=== PATIENT | female | born 1930 | race Caucasian/White ===

== ENCOUNTER 2016-10-29 21:08 | Emergency (ER) | payer MEDICARE, OTHER ==
[~2016-10-29] VITALS: Ht 167.6 cm; Wt 75.4 kg
[~2016-10-29 21:08] MED LIST: ESTR0.07 TD; LORTA5 PO; OMEP20TA PO; PERI8.6T PO; PRAV20 PO; RIVA20 PO; SERT-132 PO; VITA100018 PO
[2016-10-29 21:12] VITALS: BP 168/89; PULSE 137; RESP 16; TEMP 97.3; O2SAT 96
[2016-10-29 21:22] VITALS: BP 147/96; PULSE 138; RESP 20; O2SAT 98
[2016-10-29] MEDS ORDERED: SODIUM CHLORIDE 0.9% FLUSH 10 ML FLUSH IVF PRN (21:30)
[2016-10-29 21:38] LABS: AUTOMATED NEUTROPHIL # 4.4 TH/MM3 (1.8-7.7); BASOPHIL # 0.1 TH/MM3 (0-0.2); BASOPHIL % 0.8 % (0.0-2.0); EOSINOPHIL # 0.2 TH/MM3 (0-0.4); EOSINOPHIL % 2.3 % (0.0-4.0); HEMATOCRIT 34.9 % (35.0-46.0); HEMO FLAGS DIFF FINAL; LYMPH % 34.4 % (9.0-44.0); LYMPHOCYTE # 2.7 TH/MM3 (1.0-4.8); MEAN CORPUSCULAR HEMOGLOBIN 30.5 PG (27.0-34.0); MEAN CORPUSCULAR HGB CONC 33.5 % (32.0-36.0); MONO % 5.3 % (0.0-8.0); NEUT % 57.2 % (16.0-70.0); PLATELET COUNT 270 TH/MM3 (150-450); RED BLOOD COUNT 3.83 MIL/MM3 (4.00-5.30); RED CELL DISTRIBUTION WIDTH 12.9 % (11.6-17.2); WHITE BLOOD COUNT 7.8 TH/MM3 (4.0-11.0)
--- NOTE | 2016-10-29 21:46 | PD ---
HPI Chief Complaint: Cardiac Complaint Time Seen by Provider: 21:20 Travel History International Travel<30 days: No Contact w/Intl Traveler<30days: No Traveled to known affect area: No History of Present Illness HPI Patient is an 85-year-old female with a history of paroxysmal atrial fibrillation fibrillation presents emergency Department with generalized weakness and palpitations which started earlier tonight. Patient states she's had runs of atrial fibrillation like this before but not lasting this long. She 's been taking her medications including Xarelto. She denies any focalized weakness. She does endorse some mild right-sided headache which she states been there for some time and she has an appointment for an MRI in 4 days from now. Denies any chest pain shortness of breath abdominal pain nausea vomiting diarrhea. PFSH Past Medical History Hx Anticoagulant Therapy: Yes Arthritis: Yes Atrial Fibrillation: Yes Anxiety: Yes Depression: Yes Heart Rhythm Problems: Yes (AFIB) Cancer: No Cardiovascular Problems: Yes (AFIB) High Cholesterol: Yes Chemotherapy: No Chest Pain: No Congestive Heart Failure: No Cerebrovascular Accident: Yes Diminished Hearing: No Endocrine: No Gastrointestinal Disorders: Yes GERD: Yes Genitourinary: No Hiatal Hernia: No Immune Disorder: No Kidney Stones: No Musculoskeletal: Yes (LEFT KNEE ARTHOSCOPY,LEFT SHOLDER REPAIR AFTER TORN ROTATOR CUFF) Neurologic: Yes Psychiatric: Yes Reproductive: No Respiratory: No Immunizations Current: Yes Migraines: No Radiation Therapy: No Renal Failure: No Seizures: No Sickle Cell Disease: No Ulcer: No ?: Not Menopausal: Yes Past Surgical History Abdominal Surgery: No AICD: No Arteriovenous Shunt: No Cardiac Surgery: No Ear Surgery: No Endocrine Surgery: No Eye Surgery: No Genitourinary Surgery: No Gynecologic Surgery: Yes (HISTORECTOMY) Hysterectomy: Yes Insulin Pump: No Joint Replacement: No Oral Surgery: No Pacemaker: No Thoracic Surgery: No Tonsillectomy: Yes Other Surgery: Yes (BENIGN HEAD TUMOR) Social History Alcohol Use: Yes (SOCIALLY) Tobacco Use: No (NEVER) Substance Use: No Allergies-Medications (Allergen,Severity, Reaction): Coded Allergies: Amoxicillin (Unverified Allergy, Severe, Rash, 10/29/16) Penicillin (Verified Adverse Reaction, Intermediate, BURNING IN STOMACH, ) REPORTS NO ADVERSE REACTION TO SAID NURSE Reported Meds & Prescriptions Reported Meds & Active Scripts Active Reported Vitamin B Complex (B-Complex Vitamins) 1 Tab 1 Tab PO DAILY Magnesium (Magnesium Oxide) 400 Mg Tablet 400 Mg PO DAILY Vitamin D (Cholecalciferol) 2,000 Unit Cap 1,000 Mg PO DAILY Hydrocodone-Acetaminophen 5-300 Mg Tab 1 Tab PO Q4H PRN Omeprazole 20 Mg Tab 20 Mg PO DAILY Xarelto (Rivaroxaban) 20 Mg Tab 20 Mg PO DAILY Citalopram (Citalopram Hydrobromide) 20 Mg Tab 20 Mg PO DAILY Review of Systems Except as stated in HPI: all other systems reviewed are Neg Physical Exam Narrative GENERAL: Well-developed well-nourished appears mildly uncomfortable. Appears younger than stated age. SKIN: Focused skin assessment warm/dry. HEAD: Atraumatic. Normocephalic. EYES: Pupils equal and round. No scleral icterus. No injection or drainage. ENT: No nasal bleeding or discharge. Mucous membranes pink and moist. NECK: Trachea midline. No JVD. CARDIOVASCULAR: Irregularly irregular with intermittent tachycardia.. No murmur appreciated. 2+ bilateral equal pulses in all 4 extremity's. No murmurs gallops or rubs. RESPIRATORY: No accessory muscle use. Clear to auscultation. Breath sounds equal bilaterally. GASTROINTESTINAL: Abdomen soft, non-tender, nondistended. Hepatic and splenic margins not palpable. MUSCULOSKELETAL: No obvious deformities. No clubbing. No cyanosis. No edema. NEUROLOGICAL: Awake and alert. No obvious cranial nerve deficits. Motor grossly within normal limits. Normal speech. PSYCHIATRIC: Appropriate mood and affect; insight and judgment normal. Data Data Last Documented VS Vital Signs Date Time Temp Pulse Resp B/P Pulse Ox O2 Delivery O2 Flow Rate FiO2 10/29/16 23:24 78 20 129/71 98 10/29/16 21:40 Room Air 10/29/16 21:12 97.3 Orders Electrocardiogram (10/29/16 21:30) Ckmb (Isoenzyme) Profile (10/29/16 21:30) Complete Blood Count With Diff (10/29/16 21:30) Comprehensive Metabolic Panel (10/29/16 21:30) Magnesium (Mg) (10/29/16 21:30) Prothrombin Time / Inr (Pt) (10/29/16 21:30) Act Partial Throm Time (Ptt) (10/29/16 21:30) Troponin I (10/29/16 21:30) Chest, Single Ap (10/29/16 21:30) Ecg Monitoring (10/29/16 21:30) Iv Access Insert/Monitor (10/29/16 21:30) Oximetry (10/29/16 21:30) Oxygen Administration (10/29/16 21:30) Sodium Chloride 0.9% Flush (Ns Flush) (10/29/16 21:30) Labs Laboratory Tests Test 10/29/16 21:35 White Blood Count 7.8 TH/MM3 Red Blood Count 3.83 MIL/MM3 Hemoglobin 11.7 GM/DL Hematocrit 34.9 % Mean Corpuscular Volume 91.0 FL Mean Corpuscular Hemoglobin 30.5 PG Mean Corpuscular Hemoglobin 33.5 % Concent Red Cell Distribution Width 12.9 % Platelet Count 270 TH/MM3 Mean Platelet Volume 8.3 FL Neutrophils (%) (Auto) 57.2 % Lymphocytes (%) (Auto) 34.4 % Monocytes (%) (Auto) 5.3 % Eosinophils (%) (Auto) 2.3 % Basophils (%) (Auto) 0.8 % Neutrophils # (Auto) 4.4 TH/MM3 Lymphocytes # (Auto) 2.7 TH/MM3 Monocytes # (Auto) 0.4 TH/MM3 Eosinophils # (Auto) 0.2 TH/MM3 Basophils # (Auto) 0.1 TH/MM3 CBC Comment DIFF FINAL Differential Comment Prothrombin Time 14.4 SEC Prothromb Time International 1.3 RATIO Ratio Activated Partial 40.8 SEC Thromboplast Time Sodium Level 140 MEQ/L Potassium Level 3.5 MEQ/L Chloride Level 106 MEQ/L Carbon Dioxide Level 28.3 MEQ/L Anion Gap 6 MEQ/L Blood Urea Nitrogen 22 MG/DL Creatinine 1.00 MG/DL Estimat Glomerular Filtration 53 ML/MIN Rate Random Glucose 89 MG/DL Calcium Level 9.0 MG/DL Magnesium Level 1.7 MG/DL Total Bilirubin 0.2 MG/DL Aspartate Amino Transf 29 U/L (AST/SGOT) Alanine Aminotransferase 34 U/L (ALT/SGPT) Alkaline Phosphatase 89 U/L Total Creatine Kinase 91 U/L Troponin I LESS THAN 0.02 NG/ML Total Protein 7.2 GM/DL Albumin 3.6 GM/DL MDM Medical Decision Making Medical Screen Exam Complete: Yes Emergency Medical Condition: Yes Interpretation(s) Initial EKG at 2123 shows atrial fibrillation a rate of 97. Left axis deviation normal R-wave progression. no concerning ST segment changes. This an abnormal rhythm EKG. Cardiac monitoring shows age fibrillation with a rate between 90 and 150. TAKING initial history her heart rate dropped to 50s to 60s.. To be more regular. EKG was repeated: Repeat EKG at 2130 shows sinus bradycardia rate of 51, there is sinus arrhythmia. Intervals within normal limits. No concerning ST segment changes. Left axis deviation. This a borderline EKG. Differential Diagnosis Atrial fibrillation with RVR, ACS unlikely, electro-light abnormality, AMI unlikely. Narrative Course Patient was roomed emergency department, while taking her initial history she spontaneously converted into a sinus rhythm. She was observed for several hours in the emergency department and then walked around the emergency department after her labs returned and were unremarkable. She was monitored again and had no return of atrial fibrillation. She feels much better after her rhythm is spontaneously converted and wishes to go home. After discussion with her and her daughter they were concerned that they didn't want her to go to sleep feeling with these palpitations. I discussed if she should awake with palpitations her that should recur or any other symptoms recur she is more than welcome to return to emergency department anytime for reevaluation. She is stable for discharge. Diagnosis Primary Impression: Atrial fibrillation with RVR Additional Instructions: Follow up with your primary care physician by phone in the morning. Disposition: 01 DISCHARGE HOME Condition: Stable Nino Peña MD Oct 29, 2016 21:46
[2016-10-29 21:47] LABS: CHLORIDE 106 MEQ/L (98-107); POTASSIUM 3.5 MEQ/L (3.5-5.1); SODIUM (NA) 140 MEQ/L (136-145)
[2016-10-29 21:50] LABS: ANION GAP 6 MEQ/L (5-15); BICARBONATE 28.3 MEQ/L (21.0-32.0)
[2016-10-29 21:51] LABS: BLOOD UREA NITROGEN 22 MG/DL (7-18); MAGNESIUM 1.7 MG/DL (1.5-2.5)
[2016-10-29 21:52] LABS: APTT (PATIENT) 40.8 SEC (24.3-30.1); INTERNATIONAL NORMALIZED RATIO 1.3 RATIO; PROTHROMBIN TIME - PATIENT 14.4 SEC (9.8-11.6)
[2016-10-29 21:54] LABS: ALT (GPT) 34 U/L (10-53); AST (GOT) 29 U/L (15-37); GLOMERULAR FILTRATION RATE 53 ML/MIN (>89)
[2016-10-29 21:55] LABS: TOTAL BILIRUBIN ADULT 0.2 MG/DL (0.2-1.0)
[2016-10-29 21:56] VITALS: BP 108/56; PULSE 52; RESP 20; O2SAT 98
[2016-10-29 21:56] LABS: ALKALINE PHOSPHATASE 89 U/L (45-117)
[2016-10-29] MEDS ORDERED: CITA20TA4 PO (21:58)
[2016-10-29] MEDS ORDERED: OMEP20TA PO (21:58)
[2016-10-29] MEDS ORDERED: MAGN400T24 PO (21:58)
[2016-10-29] MEDS ORDERED: VITA200013 PO (21:58)
[2016-10-29] MEDS ORDERED: XARE20TA PO (21:58)
[2016-10-29] MEDS ORDERED: HYDR-4107 PO (21:58)
[2016-10-29] MEDS ORDERED: VITATAB11 PO (21:58)
--- NOTE | 2016-10-29 22:02 | RADRPT ---
EXAM DATE/TIME: 10/29/2016 21:40 [facility] COMPARISON: CHEST SINGLE AP, June 08, 2015, 15:01. INDICATIONS : Jaw discomfort, patient in AFIB. MEDICAL HISTORY : None. SURGICAL HISTORY : Hysterectomy. ENCOUNTER: Initial ACUITY: 1 day PAIN SCORE: 6/10 LOCATION: Bilateral upper chest FINDINGS: A single view of the chest demonstrates the lungs to be symmetrically aerated without evidence of mas s, infiltrate or effusion. The cardiomediastinal contours are unremarkable. Osseous structures are intact. CONCLUSION: The lungs are clear. Damir Chon MD on October 29, 2016 at 22:00 Board Certified Radiologist. This report was verified electronically.
[2016-10-29 22:06] LABS: CREATINE KINASE 91 U/L (26-192)
[2016-10-29 23:24] VITALS: BP 129/71
--- NOTE | 2016-10-30 11:12 | EKG ---
Date Performed: 10/29/2016 Time Performed: 21:31:19 PTAGE: 85 years EKG: SINUS BRADYCARDIA WITH SINUS ARRHYTHMIA LOW QRS VOLTAGE IN PRECORDIAL LEADS BORDERLINE ECG Since PREVIOUS TRACING , no significant change noted PREVIOUS TRACING 10/05/2015 19.40.24 DOCTOR: Leandro Dos Santos Interpretating Date/Time 10/30/2016 11:11:32
== END 2016-10-29 23:29 | disposition home or self-care (01) ==
LOC: PHED 21:08
DX: I48.0 Paroxysmal atrial fibrillation (principal); Z79.01 Long term (current) use of anticoagulants
CPT/HCPCS: 71010; 80053; 82550; 83735; 84484; 85025; 85610; 85730; 93005

== ENCOUNTER 2017-01-04 05:57 | Day surgery (SDC) | payer OTHER ==
[~2017-01-04] VITALS: Ht 167.6 cm; Wt 73.5 kg
[2017-01-04] VITALS (8 sets, daily range): BP systolic 104–154; BP diastolic 68–77; PULSE 56–85; RESP 16–17; TEMP 97.6–97.9; O2SAT 97–99
[~2017-01-04 05:57] MED LIST changes: +CITA20TA4 PO; -ESTR0.07 TD; +HYDR-4107 PO; -LORTA5 PO; +MAGN400T24 PO; -PERI8.6T PO; -PRAV20 PO; -RIVA20 PO; -SERT-132 PO; -VITA100018 PO; +VITA200013 PO; +VITATAB11 PO; +XARE20TA PO
[2017-01-04] MEDS ORDERED: LORazepam 1 MG TAB SL SCH (06:45)
[2017-01-04] MEDS ORDERED: POVIDONE IODINE 5% (ANTISEPSIS KIT) 4 APPLICATIONS EACH NARE PRN (06:45)
[2017-01-04] MEDS ORDERED: SODIUM CHLORID 0.9% 500 ML IV PRN (06:45)
[2017-01-04] MEDS ORDERED: CHLORHEXIDINE GLUCONATE 2 % 1 PACK (2 CLOTHS) TOPICAL PRN (06:45)
[2017-01-04] MEDS ORDERED: METOPROLOL TARTRATE 25 MG TAB PO PRN (06:45)
[2017-01-04] MEDS ORDERED: INSULIN HUMAN REGULAR 1,000 UNITS/10 ML VIAL SQ PRN (06:45)
[2017-01-04] MEDS ORDERED: LACTATED RINGER'S 1000 ML IV PRN (06:45)
[2017-01-04] MEDS ORDERED: LEVOFLOXACIN 500 MG PREMIX INJ 100 ML IV SCH (06:45)
[2017-01-04] MEDS: SODIUM CHLORID 0.9% 500 ML INJ 500 ML IV SCH ×2 (06:45→23:25)
[2017-01-04 07:03] LABS: AUTOMATED NEUTROPHIL # 2.9 TH/MM3 (1.8-7.7); EOSINOPHIL # 0.2 TH/MM3 (0-0.4); HEMATOCRIT 34.7 % (35.0-46.0); HEMO FLAGS DIFF FINAL; LYMPH % 25.7 % (9.0-44.0); LYMPHOCYTE # 1.2 TH/MM3 (1.0-4.8); MEAN CELL VOLUME 93.5 FL (80.0-100.0); MEAN CORPUSCULAR HEMOGLOBIN 30.9 PG (27.0-34.0); MEAN CORPUSCULAR HGB CONC 33.1 % (32.0-36.0); MONO % 7.2 % (0.0-8.0); NEUT % 61.1 % (16.0-70.0); PLATELET COUNT 235 TH/MM3 (150-450); RED BLOOD COUNT 3.71 MIL/MM3 (4.00-5.30); RED CELL DISTRIBUTION WIDTH 13.9 % (11.6-17.2); WHITE BLOOD COUNT 4.8 TH/MM3 (4.0-11.0)
[2017-01-04 07:07] LABS: APTT (PATIENT) 34.3 SEC (24.3-30.1); PROTHROMBIN TIME - PATIENT 10.5 SEC (9.8-11.6)
[2017-01-04 07:45] LABS: BICARBONATE 27.4 MEQ/L (21.0-32.0); POTASSIUM 3.9 MEQ/L (3.5-5.1)
[2017-01-04] MEDS ORDERED: HEPARIN-NS/PF INJ 2,000 ML ONE (08:07)
[2017-01-04] MEDS ORDERED: HEPARIN-D5W 25,000 U/250 ML 250 ML ONE (08:17)
[2017-01-04] MEDS ORDERED: ISOPROTERENOL HCL 1 MG/5 ML AMP ONE (08:17)
[2017-01-04] MEDS ORDERED: HEPARIN SODIUM - IV 10,000 UNITS/10 ML VIAL ONE (08:18)
[2017-01-04] MEDS ORDERED: PROTAMINE SULFATE 50 MG/5 ML VIAL ONE (10:29)
--- NOTE | 2017-01-04 10:38 | PD.CARD ---
Atrial Fibrillation Cryo Study PROCEDURE DATE: Jan 04, 2017 PROCEDURE PERFORMED Electrophysiology study, CS cannulation, 3-D mapping, transeptal approach, right and left heart catheterization, cryoablation and RF ablation of atrial fibrillation, pulmonary vein isolation, posterior ablation, anterior ablation, repeat electrophysiology study on Isuprel infusion, intracardiac echo. Very complex case. INDICATIONS FOR PROCEDURE Ms. Bowser is a 86-year-old female with hx of atrial fibrillation, on multiple medications, on anticoagulation, referred for electrophysiology study and ablation. The risks, the nature and the benefit of the procedure are clearly stated to her. The risks include pneumothorax, cardiac perforation, stroke, need for open heart surgery and even . The patient understood and agreed to proceed. PROCEDURE As written informed consent was obtained prior to esophageal echo, the patient was kept on the table where she was prepped and draped in the usual sterile fashion. Conscious sedation was initiated and throughout the procedure by the anesthesiologist. Once sedation was verified, the right and left inguinal area was anesthetized with 2% Xylocaine. Using modified Seldinger technique, the left femoral vein was cannulated on three occasions and three guidewires were advanced over the wire, one 6, one 7, and one 10-Cypriot Hemaquet were advanced. Then the left femoral artery was done on one occasion, one guidewire was advanced over the wire. A 4-Cypriot Hemaquet was advanced. Then the right femoral vein was cannulated on one occasion and one guidewire was advanced over the wire. An 8-Cypriot Hemaquet was advanced. Then under fluoroscopic guidance through the 6 and 7-Cypriot Hemaquet, two 5- Cypriot Sunshine curved quadripolar electrophysiology catheters were advanced and positioned on the His as well as coronary sinus. The patient was in sinus rhythm. Basic interval was measured. They were all within normal limits. Then through the 10-Cypriot Hemaquet, a Cordis-Londono AcuNav intracardiac echo catheter was advanced and placed at the right atrium. Multiple views were obtained. There was no pericardial effusion. Pulmonary vein was seen. The atrial septum was visualized. Then the 8-Cypriot Hemaquet in the right femoral vein was exchanged for an Agilis transseptal sheath that was placed all the way to the superior vena cava. Through this sheath a Dixon needle was advanced. Then the sheath, the dilator and the needle were pulled back progressively until foci engaged. Once the needle was advanced, RF was delivered for 2 seconds. I was able to cross into the left atrium. Once the needle was crossed, the dilator was advanced. Once the dilator was crossed, the sheath was advanced. Once the sheath crossed , the dilator and needle were removed. An intracardiac echo showed the sheath in good position. The patient already received 10,000 units of heparin. The goal is to get an ACT around 360 during the ablation. Through the sheath a 0.035 wire was advanced. I did exchange the Agilis sheath for a Tetra Discovery flex sheath. I decided to use a 28mm balloon. The balloon was advanced over the Acheive circumferential catheter. Using Ensite , a 3 D mapping of the left atrium was performed. First I did engage the left superior vein. The balloon was inflated, complete occlusion obtained. CryoEnergy was delivered for 3 and 3 minutes. Temperature reached -48. Then I did engage the left inferior vein, occlusion obtained. Venography showed complete occlusion and CryoEnergy was delivered for 3 and 3 minutes. Temperature was around -44 to -46. Then the right inferior was engaged, complete occlusion obtained. Temperature reach -56 for 3 minutes. Then the right superior was engaged. Before CryoEnergy of the right veins, the His catheter was placed at the left and the right subclavian. Phrenic nerve pacing was performed. There was diaphragmatic stimulation. That is going to be used for phrenic nerve monitoring during cryoablation. I did cryoablate the right superior vein. There was no loss of phrenic nerve movement, diaphragmatic movement. Phrenic nerve was intact. The temperature dropped to -56 for 3 minutes. At that point I removed the balloon. The circumferential catheter was advanced into the veins. Pacing from the vein showed no conduction to the atrium. Pacing from the atrium showed no conduction to the veins. The patient at this point received Isuprel infusion for around 10 minutes at 20mcg. No tachyarrhythmia was induced, no conduction resumed. Post-Isuprel no conduction resumed either. At that point the procedure was complete. All catheters were removed, the transeptal sheath was exchanged for a 12-Cypriot Hemaquet. Intracardiac echo showed pericardial effusion, still good flow in the pulmonary vein. No incident reported. The patient tolerated the procedure. Blood loss minimal. 1. Electrocardiogram: At baseline the patient was in sinus. Postprocedure the patient in sinus. 2. Basic Interval: Base cycle length was around 1100 milliseconds. 3. Tachyarrhythmia: Atrial fibrillation was mapped and ablated. Ablation was successful. CONCLUSION Successful electrophysiology study, mapping and cryo ablation of atrial fibrillation, pulmonary vein isolation, posterior and anterior wall ablation, repeat electrophysiology study on Isuprel infusion. COMMENT AND RECOMMENDATIONS The patient is going to be transferred to the telemetry unit, will be observed, and when stable can be discharged home. Baylee Mccarthy MD Jan 04, 2017 10:38
[2017-01-04] MEDS ORDERED: BACITRACIN OINT 0.9 GM PKT TOP ONE (10:45)
[2017-01-04] MEDS ORDERED: ATROPINE SULFATE 1 MG/ML VIAL IV PUSH PRN (10:45)
[2017-01-04] MEDS ORDERED: LORazepam 2 MG/ML VIAL IV PUSH PRN (10:45)
[2017-01-04] MEDS ORDERED: LIDOCAINE HCL 1% 50 ML VIAL INFIL PRN (10:45)
[2017-01-04] MEDS ORDERED: SODIUM CHLOR 0.9% 250 ML INJ 250 ML IV PRN (10:45)
[2017-01-04] MEDS ORDERED: ONDANSETRON HCL 4 MG/2 ML VIAL IV PUSH PRN (10:45)
[2017-01-04] MEDS ORDERED: oxyCODONE/ACETAMINOPHEN 5 MG/325 MG TAB PO PRN ×2 (10:45)
[2017-01-04] MEDS ORDERED: METOCLOPRAMIDE HCL 10 MG/2 ML VIAL IV PUSH PRN (10:45)
--- NOTE | 2017-01-04 11:22 | CATHPROC ---
[employer] HIS Report Study Information Study Number Admission Scheduled Start Study Start [id number] Jan 04 2017 5:57AM 01/04/2017 Jan 04 2017 7:08AM [place] Service Electrophysiology Study Admit Source Facility Department Other [facility] - [facility] Physician and Clinical Staff Initial Baylee Bernardo Senior Quality Methods Specialist James Arce,RT(R) Other Anesthesia, WOOD CABINETMAKER Recorder Jana Keita,JOSEPH Scrub Ruth Patel RCIS Procedures Performed Procedure Location (Site) Vessel Name Ablation Procedure CRYO Ablation LIPV LIPV CRYO Ablation LSPV LSPV CRYO Ablation RIPV RIPV CRYO Ablation RSPV RSPV ICE CATHETER INSERT RA Atruim Venogram LSPV LSPV Venogram RSPV RSPV Wire insertion Fem Vein (right) Femoral Vein Equipment Time Vehicle Painter Description Size Mfg Part Number Used/Scraped COPILOT VALVE, BLEEDBACK [id number] 09:00 [employer] Used CONTROL *[id number] TRANSDUCER, TRUWAVE [id number] 09:00 [employer]self * Used W/STOCKCOCK *[id number] NEEDLE, TRANSSEPTAL NRG 98 09:00 [facility] [place] [id number] Used C1 COVER, TRANSDUCER CABLE 09:00 [employer] [id number] Used ACUNAV 09:00 CONMED LEADWIRE, DEFIBRILLATION PAD 2001M-[id number] Used SHEATH SET, FR12 CHECK-JULIANN RCF-[id number]-J 09:00 COOK/PACER FR12 Used 13CM *[id number] 09:00 CORDIS/PACER SHEATH, FR10 ZA 11CM FR 10 [id number] Used [id number] 09:00 [employer] PACK, CCL CUSTOM * Used *[id number] 09:00 Folde[employer] PACER RIVERA, LIMB * 2530 *[id number] Used [id number] 09:00 [employer] MEDICAL SHEATH, FR4.5 PRELUDE 11CM FR 4.5 Used [id number] 09:00 [employer] MEDICAL WIRE, 3MMJ .035 180CM 180CM Used *[id number] 09:00 NAMIC MANIFOLD, 4 PORT * Used *[id number] 09:00 NAMIC TUBING, HIGH PRESSURE 20" 20" Used *[id number] 09:00 NAMIC TUBING, HIGH PRESSURE 48" 48" Used *[id number] 09:00 NAMIC TUBING, HIGH PRESSURE 48" 48" Used *[id number] TUBING, PRESSURE MONITORING [id number] 09:00 NAMIC PACER 72" Used 72" *1999161 09:35 [employer]COMED OMNIPAQUE, 300 MG, 150ML 150ML [id number] Used [id number] 09:00 TIJERINA MEDICAL BLANKET,WARM AIR CCL * Used *[id number] 055109 09:00 [employer] MEDICAL CATHETER, JSN, QUAD FR 5 Used *[id number] 09:00 [employer] MEDICAL CATHETER, JSN, QUAD FR 5 Used *[id number] 09:00 [employer] MEDICAL ELECTRODE KIT, LINDSAY X SURFACE * [id number] Used [id number] 09:00 [employer] MEDICAL SHEATH, EPS, FR6 FAST CATH FR 6 Used *[id number] 09:00 [employer] MEDICAL SHEATH, EPS, FR7 FAST CATH FR 7 [id number] Used [id number] 09:00 [employer] MEDICAL SHEATH, EPS, FR8 FAST CATH FR 8 Used *[id number] CATHETER, ACUNAV FR10 ICE [id number] 09:11 JOSÉ MIGUEL FR 10 Used (JOSÉ MIGUEL) *[id number] [facility] PAD, ELECTROSURGICAL 09:00 * [id number] *[id number] Used SURGICAL GROUNDING (BLUE) BALLOON, ARCTIC FRONT [id number] 09:18 VITATRON [employer] Used ADVANCE 28MM *[id number] CATHETER, ACHEIVE MAPPING [id number] 09:14 VIT[employer]RON [employer] 20MM Used 20MM *[id number] SHEATH, FR12 FLEXCATH 09:18 VITATRON [employer]TR[employer] FR 12 [id number] Used STEERABLE History: Allergies Allergy Reaction amoxicillin Rash Penicillin BURNING IN STOMACH penicillin G BURNING IN STOMACH History: Risk Factors Dyslipidemia Yes Cerebrovascular Disease Labs Hgb (g/dl) Hct (%) RBC (MIL/MM3) WBC (l/cumm) Platelets (thousands) 11.60-17.00 35.00-51.00 4.00-5.90 4.00-11.00 150.00-450.00 11.0 34 3.8 7.8 270 Glucose (mg/dl) BUN (mg/dl) Creatinine (mg/dl) BUN:Creatinine (1:x) 74.00-106.00 7.00-18.00 0.50-1.30 10.00-20.00 89 22 1.0 22 Na (meq/l) K (meq/l) 136.00-145.00 3.50-5.10 140 3.5 INR (PTT:PT) 0.90-1.10 1.3 Medication Medication Total Dose (Bolus/Oral) Medication Total Dosage/Unit 1% XYLOCAINE 40 mL HEPARIN 20683 units PROTAMINE 40 mg Medications (Bolus/Oral) Medication Time Given Dosage/Unit Administered By Reason 1% XYLOCAINE 01/04/2017 9:00:47 AM 20 mL Baylee Mccarthy 20 mL 1% XYLOCAINE given in lab by Baylee Mccarthy in Left Groin via Subcutaneous. 1% XYLOCAINE 01/04/2017 9:07:00 AM 20 mL Baylee Mccarthy 20 mL 1% XYLOCAINE given in lab by Baylee Mccarthy via Subcutaneous. HEPARIN 01/04/2017 9:13:47 AM 8000 units Anesthesia, WOOD CABINETMAKER As per physicians ve rbal order 8000 units HEPARIN given in lab by Anesthesia, WOOD CABINETMAKER via Peripheral IV. Ordered by Baylee Mccarthy. Reas on: As per physicians verbal order. HEPARIN 01/04/2017 9:30:35 AM 2000 units Anesthesia, WOOD CABINETMAKER As per physicians ve rbal order 2000 units HEPARIN given in lab by Anesthesia, WOOD CABINETMAKER via Peripheral IV. Ordered by Baylee Mccarthy. Reas on: As per physicians verbal order. HEPARIN 01/04/2017 9:45:17 AM 2000 units Anesthesia, WOOD CABINETMAKER As per physicians ve rbal order 2000 units HEPARIN given in lab by Anesthesia, WOOD CABINETMAKER via Peripheral IV. Ordered by Baylee Mccarthy. Reas on: As per physicians verbal order. PROTAMINE 01/04/2017 10:34:22 AM 40 mg Anesthesia, WOOD CABINETMAKER As per physicians mattie bal order 40 mg PROTAMINE given in lab by Anesthesia, WOOD CABINETMAKER via Peripheral IV. Ordered by Baylee Mccarthy. Reason: As per physicians verbal order. Medication (Drip) Medication Time Given Dosage/Unit Concentration/Unit Diluent (ml) Solution HEPARIN DRIP 01/04/2017 9:31:48 AM 1000 units/hr 19868 units 250 D5W 1000 units/hr HEPARIN DRIP given in lab by Anesthesia, WOOD CABINETMAKER via Peripheral IV. Pump/Drip Flow = 10 ml /hr using [place] [address] units in 250 ml. Ordered by Baylee Mccarthy. Reason: As per physicians verbal order. ISUPREL 01/04/2017 10:13:33 AM 20 mcg/min 1 mg 250 NaCl .9 20 mcg/min ISUPREL given in lab by CHUY Mora via Peripheral IV. Pump/Drip Flow = 300 ml/hr usi ng NaCl .9 with a concentration of 1 mg in 250 ml. Ordered by Baylee Mccarthy. Reason: As per physicians verbal order. Initial Case Assessment Cardiovascular HR Rhythm NIBP Chest Pain 61 sr 181/85 0 Edema Present Skin color Skin None Normal Warm Dry Circulatory - Right Pulses Dorsalis Pedis 2 Scale (0,1,2,3,4,d) Circulatory - Left Pulses Dorsalis Pedis 2 Scale (0,1,2,3,4,d) Circulatory - Lower Extremities Color Lower Right Color Lower Left Normal Normal Neurological State Oriented to time-place- Alert Moves all extremities person Respiration - General Respiration Rate SpO2 (%) (B/min) 20 92 Final Case Assessment Cardiovascular HR Rhythm NIBP Chest Pain 65 sr 150/80 0 Edema Present Skin color Skin None Normal Warm Dry Circulatory - Right Pulses Dorsalis Pedis 2 Scale (0,1,2,3,4,d) Circulatory - Left Pulses Dorsalis Pedis 2 Scale (0,1,2,3,4,d) Circulatory - Lower Extremities Color Lower Right Color Lower Left Normal Normal Neurological State Oriented to time-place- Alert Moves all extremities person Respiration - General Respiration Rate SpO2 (%) O2 (lpm) (B/min) 14 100 4 Chronological Log Time Study Chronological Log 8:04:46 Patient arrived via Bed. 8:04:47 Patient Name, D.O.B, / Armband Verified By R.N. 8:04:48 Consent signed by the physician and the patient and verified by the [facility] staff. 8:04:48 Pre-op and post- op instructions given; patient acknowledges understanding of instructions. 8:04:49 Verbal Stimulation=2 Physical Stimulation=2 Airway=2 Respiration=2 TOTAL=8. (0=absent, 1=li mited, 2=present) 8:05:01 Anesthesia at bedside. Assumes care of patient. 8:05:05 Patient has been NPO for More than 6Hrs. 8:05:06 Skin Breakdown- 8:05:07 Patient Warmer Placed on the Table. 8:05:08 Disposable Defibrillator Pads Placed On Patient. 8:05:10 Alvina Prominences Protected 8:05:11 A # 20 IV was noted in the Antecubital (right). Grade = 0 0.9ns kvo 8:05:12 A # 20 IV was noted in the Antecubital (left). Grade = 0 0.9ns kvo 8:05:13 History and physical on the chart or being dictated. Assessment: Initial Case, HR=61 BPM, Rhythm=sr, IUED=926/85 mmhg, Chest Pain=0, Edema=None, [place] r=Normal, Skin = Warm, Dry Right Pulses: Jos Ped=2 Left Pulses: Jos Ped=2 8:18:34 Lower Right Extremities: Color=Normal Lower Left Extremities: Color=Normal Neurological: State=Alert, Ox3, BANKS Respiration: Resp=20 B/min, SpO2=92 % 8:19:36 Table restraints applied according to hospital policy 8:25:25 Reference ECG taken 8:25:27 Anethesiologist present for intubation. 8:35:49 [facility] rep present. 8:41:00 MD paged 8:41:49 MD responded 8:53:41 MD arrived. Time Out. Correct patient, procedure, procedure equipment, site and side verified with physician present. Time 8:56:00 concurred by MD, individual staff and WOOD CABINETMAKER. 8:56:03 Reference ECG taken 8:56:23 Pressure channel 2 zeroed. Time Out #2 - Consents verified, patient in correct position, all results are labled and display ed, safety precautions 8:56:38 taken, antibiotics administered. Time out concurred by MD, individual staff and WOOD CABINETMAKER in procedur e 8:56:59 Case Start 8:57:34 MARLON in progress 8:59:47 MARLON complete 9:00:47 20 mL 1% XYLOCAINE given in lab by Baylee Mccarthy in Left Groin via Subcutaneous. 9:02:00 Vascular access was obtained in the Fem Vein (left). 9:02:06 Vascular access was obtained in the Fem Vein (left). 9:02:20 Vascular access was obtained in the Fem Vein (left). 9:02:27 Vascular access was obtained in the Fem Art (left). A SHEATH, FR4.5 PRELUDE 11CM FR 4.5 was advanced into the Fem Art (left) using the Modified Seld margi technique. 9:02:46 0.9ns pressure bag connected. 9:03:31 A SHEATH, EPS, FR6 FAST CATH FR 6 was advanced into the Fem Vein (left) using the Modified S eldinger technique. 9:03:43 A SHEATH, EPS, FR7 FAST CATH FR 7 was advanced into the Fem Vein (left) using the Modified S eldinger technique. 9:03:59 A SHEATH, FR10 ZA 11CM FR 10 was advanced into the Fem Vein (left) using the Modified Se briceno technique. 9:07:00 20 mL 1% XYLOCAINE given in lab by Baylee Mccarthy via Subcutaneous. 9:07:40 Vascular access was obtained in the Fem Vein (right). 9:07:56 A SHEATH, EPS, FR8 FAST CATH FR 8 was advanced into the Fem Vein (right) using the Modified Seldinger technique. A CATHETER, JSN, QUAD FR 5 was advanced vis Fem Vein (left) and placed in the CS. Placement was visually 9:09:02 confirmed under fluoroscopy. A CATHETER, JSN, QUAD FR 5 was advanced vis Fem Vein (left) and placed in the HIS. Placement was visually 9:09:30 confirmed under fluoroscopy. 9:11:11 CATHETER, ACUNAV FR10 ICE (Viragen) FR 10 Was Postioned. 8000 units HEPARIN given in lab by Anesthesia, WOOD CABINETMAKER via Peripheral IV. Ordered by Baylee Mccarthy. Reason: As per 9:13:47 physicians verbal order. 9:13:57 [place]alston in 9:14:51 A eps was advanced to the right atrium and passed through the septal wall to the left atrium . 9:14:57 Ralston out 9:21:03 Activated Clotting Time Drawn A SHEATH, FR12 FLEXCATH STEERABLE FR 12 was exchanged in the Fem Vein (right). This was necessa ry in order for 9:23:23 catheter support. A CATHETER, ACHEIVE MAPPING 20MM 20MM was advanced vis Fem Vein (right) and placed in the LA. P lacement was 9:27:00 visually confirmed under fluoroscopy. Mapping in progress. 9:27:54 ACT (Normal Range 90-180) = 313 9:29:18 A BALLOON, ARCTIC FRONT ADVANCE 28MM was inserted over wire via the Fem Vein (right). 9:30:00 Cryo Ablation of the LSPV with a BALLOON, ARCTIC FRONT ADVANCE 28MM. 9:30:00 The LSPV was manually injected with 10 cc's of contrast. OMNIPAQUE, 300 MG, 150ML 150ML used . 2000 units HEPARIN given in lab by Anesthesia, WOOD CABINETMAKER via Peripheral IV. Ordered by Baylee Mccarthy . Reason: As per 9:30:35 physicians verbal order. 1000 units/hr HEPARIN DRIP given in lab by Anesthesia, WOOD CABINETMAKER via Peripheral IV. Pump/Drip Flow = 10 ml/hr using 9:31:48 D[place] [address] units in 250 ml. Ordered by Baylee Mccarthy. Reason: As per eri cowan verbal order. 9:33:00 The LSPV was manually injected with 10 cc's of contrast. OMNIPAQUE, 300 MG, 150ML 150ML used . 9:33:44 Cryo Ablation of the LSPV with a BALLOON, ARCTIC FRONT ADVANCE 28MM. 9:37:45 Activated Clotting Time Drawn 9:42:05 Cryo Ablation of the LSPV with a balloons. 9:44:36 ACT (Normal Range 90-180) = 326 2000 units HEPARIN given in lab by Anesthesia, WOOD CABINETMAKER via Peripheral IV. Ordered by Baylee Mccarthy . Reason: As per 9:45:17 physicians verbal order. 9:48:52 Cryo Ablation of the LIPV with a BALLOON, ARCTIC FRONT ADVANCE 28MM. 9:53:38 The LSPV was manually injected with 20 cc's of contrast. OMNIPAQUE, 300 MG, 150ML 150ML used . 9:53:55 Cryo Ablation of the LIPV with a BALLOON, ARCTIC FRONT ADVANCE 28MM. 9:58:26 ACT (Normal Range 90-180) = 365 9:58:41 Cryo Ablation of the RIPV with a BALLOON, ARCTIC FRONT ADVANCE 28MM. 10:01:11 Cryo Ablation of the RIPV with a balloons. 10:03:25 The RSPV was manually injected with 10 cc's of contrast. OMNIPAQUE, 300 MG, 150ML 150ML use d. 10:03:43 Cryo Ablation of the RSPV with a BALLOON, ARCTIC FRONT ADVANCE 28MM. 10:07:13 Cryo Ablation of the RSPV with a BALLOON, ARCTIC FRONT ADVANCE 28MM. 20 mcg/min ISUPREL given in lab by Anesthesia, WOOD CABINETMAKER via Peripheral IV. Pump/Drip Flow = 300 ml/ hr using NaCl .9 10:13:33 with a concentration of 1 mg in 250 ml. Ordered by Baylee Mccarthy. Reason: As per physicians mattie bal order. 10:23:45 Isuprel off 10::45 Catheters removed without difficulty 10:28:27 A WIRE, 3MMJ .035 180CM 180CM was inserted via Fem Vein (right). A SHEATH SET, FR12 CHECK-JULIANN 13CM FR12 was exchanged in the Fem Vein (right). This was necessar y in order to 10:28:47 achieve vascular hemostasis. 10:30:43 PACU called. Spoke to Carmen. 10:31:07 Bedside Report will be given. 40 mg PROTAMINE given in lab by Anesthesia, WOOD CABINETMAKER via Peripheral IV. Ordered by Baylee Mccarthy. R vic: As per 10:34:22 physicians verbal order. 10:40:01 Activated Clotting Time Drawn 10:41:51 ACT (Normal Range 90-180) = 141 10:44:55 Right groin Sheath removed; pressure applied to access site by DB. 10:45:13 Left fem arterial Sheath removed; pressure applied to access site by DC. 10:48:27 Ablation procedure performed: AFIB. 10:48:35 EP Procedure was performed. 10:50:47 Case End 10:55:00 Left venous sheaths removed; pressure applied to access site by DC. 11:02:54 No case complications noted. 11:02:55 Cine recording checked. 11:03:28 Defibrillator and ground pads removed. Skin intact. Assessment: Final Case, HR=65 BPM, Rhythm=sr, CITU=275/80 mmhg, Chest Pain=0, Edema=None, [place] r=Normal, Skin = Warm, Dry Right Pulses: Jos Ped=2 Left Pulses: Jos Ped=2 11:20:17 Lower Right Extremities: Color=Normal Lower Left Extremities: Color=Normal Neurological: State=Alert, Ox3, BANKS Respiration: Resp=14 B/min, TvU8=158 %, O2=4 lpm 11:21:49 Sterile dressing applied to sites. Sites wnl. No hematoma. No oozing. 11:26:34 Patient moved to stretcher End Study - Contrast Media Used In Study Contrast Total Opened (mL) Total Used (mL) Total Wasted (mL) Omnipaque 150 50 100 End Study - Maximum Contrast Load Max Contrast Load (mL) 366.6 End Study - Radiation Exposure Fluoro Time (minutes) 7.0 End Study - Patient Disposition Complications Transferred To Interventional Outcome No Telemetry Bed successful
[2017-01-04] MEDS ORDERED: DO NOT ADM ANY ANTICOAGULANT DRUGS PRN (11:34)
[2017-01-04] MEDS ORDERED: DEXAMETHASONE SOD PHOS 4 MG/ML VIAL IV ONE (12:00)
[2017-01-04] MEDS ORDERED: PROPOFOL 200 MG/20 ML AMP IV ONE (12:00)
[2017-01-04] MEDS ORDERED: LIDOCAINE HCL 1% PF 5 ML AMPULE OTHER ONE (12:00)
[2017-01-04] MEDS ORDERED: ONDANSETRON HCL 4 MG/2 ML VIAL IV PUSH ONE (12:00)
[2017-01-04] MEDS ORDERED: ROCURONIUM INJ 50 MG/5 ML SYRINGE IV PUSH ONE (12:00)
--- NOTE | 2017-01-04 12:36 | EKG ---
Date Performed: 01/04/2017 Time Performed: 06:41:08 PTAGE: 86 years EKG: Sinus bradycardia with PAC(s) with borderline 1st degree A-V block. Poor R wave progression - probable normal variant Borderline ECG Compared to prior tracing no significant change PREVIOUS TRACING : 10/29/2016 21.31 DOCTOR: Leandro Dos Santos Interpretating Date/Time 01/04/2017 12:30:13
--- NOTE | 2017-01-04 15:59 | EKG ---
Date Performed: 01/04/2017 Time Performed: 12:14:08 PTAGE: 86 years EKG: Sinus rhythm WITH FIRST DEGREE AV BLOCK BORDERLINE LEFT AXIS DEVIATION POSSIBLE RIGHT VENTRICULAR CONDUCTION SANTOSH Y Compared to prior tracing no significant change ABNORMAL ECG PREVIOUS TRACING : 01/04/2017 06.41 DOCTOR: Leandro Dos Santos Interpretating Date/Time 01/04/2017 15:58:34
[2017-01-04] MEDS ORDERED: RIVAROXABAN 20 MG TAB PO SCH (18:00)
[2017-01-05] VITALS (13 sets, daily range): BP systolic 111–117; BP diastolic 46–64; PULSE 60–70; RESP 16; TEMP 97.7–97.8; O2SAT 97–98
[2017-01-05 07:01] LABS: APTT (PATIENT) 41.4 SEC (24.3-30.1); INTERNATIONAL NORMALIZED RATIO 1.3 RATIO; PROTHROMBIN TIME - PATIENT 14.2 SEC (9.8-11.6)
[2017-01-05] MEDS ORDERED: PANTOPRAZOLE SOD 20 MG DELAYED RELEASE TAB PO SCH (09:00)
[2017-01-05] MEDS ORDERED: CHOLECALCIFEROL (VIT D3) 1000 UNIT TAB PO SCH (09:00)
[2017-01-05] MEDS ORDERED: CITALOPRAM HYDROBROMIDE 20 MG TAB PO SCH (09:00)
--- NOTE | 2017-01-05 11:19 | HHI.PR ---
Subjective Remarks Feeling ok Objective Vital Signs Date Time Temp Pulse Resp B/P (MAP) Pulse Ox O2 Delivery O2 Flow Rate FiO2 01/05/17 10:00 68 01/05/17 09:00 66 01/05/17 08:00 70 01/05/17 07:37 97.8 70 16 111/46 (67) 98 01/05/17 07:00 67 01/05/17 06:09 64 01/05/17 05:28 62 01/05/17 04:35 97.7 69 117/64 (81) 97 01/05/17 04:00 62 01/05/17 03:00 62 01/05/17 02:00 64 01/05/17 01:00 62 01/05/17 00:00 60 01/04/17 23:16 66 01/04/17 23:00 97.9 72 128/68 (88) 97 01/04/17 22:00 60 01/04/17 21:00 68 01/04/17 20:00 72 01/04/17 19:00 97.7 85 121/68 (85) 99 01/04/17 19:00 78 01/04/17 19:00 97.7 85 121/68 (85) 99 01/04/17 18:22 97.6 62 16 104/77 (86) 01/04/17 18:20 16 01/04/17 17:30 72 16 140/69 (92) 100 Room Air 01/04/17 17:00 72 16 137/71 (93) 100 Room Air 01/04/17 16:30 66 16 135/72 (93) 97 Room Air 01/04/17 16:00 71 16 132/61 (84) 99 Room Air 01/04/17 15:30 68 16 153/68 (96) 96 Room Air 01/04/17 15:00 65 16 141/74 (96) 100 Room Air 01/04/17 14:30 66 16 147/77 (100) 98 Room Air 01/04/17 14:00 65 16 139/73 (95) 100 Room Air 01/04/17 13:30 64 16 157/79 (105) 100 Room Air 01/04/17 13:00 61 16 162/74 (103) 100 Nasal Cannula 2 01/04/17 12:30 63 16 170/87 (114) 100 Nasal Cannula 2 01/04/17 12:15 69 16 168/83 (111) 100 Nasal Cannula 2 01/04/17 12:00 66 16 160/82 (108) 100 Nasal Cannula 2 01/04/17 11:45 72 16 162/79 (106) 99 Nasal Cannula 2 01/04/17 11:35 97.0 76 16 159/76 (103) 97 Nasal Cannula 2 I/O 01/04/17 01/04/17 01/04/17 01/05/17 01/05/17 01/05/17 07:00 15:00 23:00 07:00 15:00 23:00 Intake Total 240 ml Balance 240 ml Intake Oral 240 ml # Voids 3 Result Diagram: 01/04/1762401/04/17624 Imaging Alert, fully oriented Lungs: ventilated Heart: S1, s2 regular Abdomen: soft, no mass Ext: no edema Current Medications Medications (Trade) Dose Ordered Sig/Rosio Route Start Time Stop Time Status Last Admin Lactated Ringer's 1,000 ml @ 30 mls/hr Q24H PRN IV 01/04/17 06:45 01/07/17 06:44 Sodium Chloride 500 ml @ 30 mls/hr [id number] PRN IV 01/04/17 06:45 01/07/17 06:44 (Lopressor) 25 mg PICTURE PAINTER PRN PO 01/04/17 06:45 01/07/17 06:44 (Betadine 5% Antisepsis Kit) 1 applic PICTURE PAINTER PRN EACH NARE 01/04/17 06:45 01/07/17 06:44 (Chlorhexidine 2% Cloth) 3 pack PICTURE PAINTER PRN TOPICAL 01/04/17 06:45 01/07/17 06:44 (NovoLIN R INJ) See Protocol Table ... PICTURE PAINTER PRN SQ 01/04/17 06:45 01/07/17 06:44 Sodium Chloride 500 ml @ 30 mls/hr [id number] IV 01/04/17 06:45 01/04/17 06:45 (Ativan) 1 mg PICTURE PAINTER SL 01/04/17 06:45 01/07/17 06:44 01/04/17 07:27 (Percocet 5-325 Mg) 1 tab Q4H PRN PO 01/04/17 10:45 01/04/17 14:34 (Percocet 5-325 Mg) 2 tab Q4H PRN PO 01/04/17 10:45 (Atropine Inj) 0.5 mg UNSCH PRN IV PUSH 01/04/17 10:45 (Reglan Inj) 10 mg Q4H PRN IV PUSH 01/04/17 10:45 (Zofran Inj) 4 mg Q4H PRN IV PUSH 01/04/17 10:45 (CeleXA) 20 mg DAILY PO 01/05/17 09:00 (Xarelto) 20 mg DAILY@1800 PO 01/04/17 18:00 01/04/17 18:30 (Vitamin D3) 1,000 units DAILY PO 01/05/17 09:00 01/05/17 10:21 (Protonix) 20 mg DAILY PO 01/05/17 09:00 01/05/17 10:21 Miscellaneous Information ALL NURSING DEPARTME... UNSCH PRN .XX 01/04/17 11:34 01/05/17 11:33 Assessment and Plan Problem List: (1) Paroxysmal atrial fibrillation ICD Codes: I48.0 - Paroxysmal atrial fibrillation Status: Chronic Plan: SP atrial ablation In sinus rhythm. Doing well can be DH Follow up in 3 weeks. Baylee Mccarthy MD Jan 05, 2017 11:19
--- NOTE | 2017-01-05 16:28 | EKG ---
Date Performed: 01/05/2017 Time Performed: 08:07:22 PTAGE: 86 years EKG: Sinus rhythm with borderline 1st degree A-V block. Low QRS voltages in precordial leads Borderline ECG PREVIOUS TRACING : 01/04/2017 12.14 Compared to prior tracing no significant change DOCTOR: Mike Fay Interpretating Date/Time 01/05/2017 16:26:50
== END 2017-01-05 13:15 | disposition home or self-care (01) ==
LOC: HDIC 05:57 → HDOC 05:57 → HCIN 17:37 → HDOC 01-05 13:15
PROVIDERS: ATTEND Internal Medicine Interventional Cardiology
DX: I48.0 Paroxysmal atrial fibrillation (principal); R00.1 Bradycardia, unspecified; I44.0 Atrioventricular block, first degree; I49.5 Sick sinus syndrome; I10 Essential (primary) hypertension; I73.9 Peripheral vascular disease, unspecified; Z86.73 Personal history of transient ischemic attack (TIA), and cerebral infarction without residual deficits; Z79.899 Other long term (current) drug therapy; Z79.01 Long term (current) use of anticoagulants
CPT/HCPCS: 80048; 85002; 85025; 85610; 85730; 93005; 93312; 93320; 93325; 93613; 93623; 93656; 93662; C1730; C1731; C1732; C1733; C1759; C1766; J1100; J1644; J1956; J2060; J2405; J2720; J3010; J7040

== ENCOUNTER 2017-02-18 08:26 | Emergency (ER) | payer OTHER ==
[~2017-02-18] VITALS: Ht 167.6 cm; Wt 74.6 kg
[~2017-02-18 08:26] MED LIST changes: -HYDR-4107 PO; -MAGN400T24 PO; -OMEP20TA PO; +OMEP20TA93 PO; -VITATAB11 PO
[2017-02-18 08:35] VITALS: BP 128/61; PULSE 75; RESP 16; TEMP 97.4; O2SAT 99
[2017-02-18] MEDS ORDERED: ZOLO50TA PO (08:46)
[2017-02-18] MEDS ORDERED: TEMA7.5C PO (08:46)
--- NOTE | 2017-02-18 08:58 | PD ---
HPI Chief Complaint: GI Complaint Time Seen by Provider: 08:45 Travel History International Travel<30 days: No Contact w/Intl Traveler<30days: No Traveled to known affect area: No History of Present Illness HPI 86 years old female complains of low abdominal pain and rectal pain. Patient states that she has been constipated for the past 4 days. Patient states that she started having low abdominal pain and rectal pain since last night. Patient states that the abdominal pain and rectal pain is aching pain localized to lower abdomen rectal area. Patient denies any pain radiation. Patient has been trying stool softener and Fleet enema without success of relieving the constipation. Patient denies any fever chills. Patient denies any nausea vomiting diarrhea. Patient denies dysuria or frequency. Patient denies any vaginal discharge or bleeding. Patient has history of atrial fibrillation status post ablation procedure a month ago. Patient has history of TIA in the past. Patient's on Xarelto. Patient status post hysterectomy. PFSH Past Medical History Hx Anticoagulant Therapy: Yes Arthritis: Yes Atrial Fibrillation: Yes Anxiety: Yes Depression: Yes Heart Rhythm Problems: Yes Cancer: No Cardiovascular Problems: Yes (hx of a-fib) High Cholesterol: Yes Chemotherapy: No Chest Pain: No Congestive Heart Failure: No Cerebrovascular Accident: Yes (tia's) Diminished Hearing: No Endocrine: No Gastrointestinal Disorders: Yes (GERD) GERD: Yes Genitourinary: No Hiatal Hernia: No Hypertension: Yes Immune Disorder: No Kidney Stones: No Musculoskeletal: Yes (LEFT KNEE ARTHOSCOPY,LEFT SHOLDER REPAIR AFTER TORN ROTATOR CUFF) Neurologic: Yes Psychiatric: Yes Reproductive: No Respiratory: No Immunizations Current: Yes Migraines: No Radiation Therapy: No Renal Failure: No Seizures: No Sickle Cell Disease: No Ulcer: No Influenza Vaccination: Yes ?: Not Menopausal: Yes : 3 Para: 3 Past Surgical History Abdominal Surgery: No AICD: No Arteriovenous Shunt: No Cardiac Surgery: No Ear Surgery: No Endocrine Surgery: No Eye Surgery: No Genitourinary Surgery: No Gynecologic Surgery: Yes Hysterectomy: Yes Insulin Pump: No Joint Replacement: No Neurologic Surgery: Yes ([id number]) Oral Surgery: No Pacemaker: No Thoracic Surgery: No Tonsillectomy: Yes Other Surgery: Yes (BENIGN HEAD TUMOR) Social History Alcohol Use: Yes (SOCIALLY) Tobacco Use: No (NEVER) Substance Use: No Allergies-Medications (Allergen,Severity, Reaction): Coded Allergies: amoxicillin (Verified Allergy, Severe, Rash, 02/18/17) penicillin G (Verified Adverse Reaction, Intermediate, BURNING IN STOMACH , 02/18/17) REPORTS NO ADVERSE REACTION TO SAID NURSE Reported Meds & Prescriptions Reported Meds & Active Scripts Active Reported Zoloft (Sertraline HCl) 50 Mg Tab 50 Mg PO DAILY Temazepam 7.5 Mg Cap 7.5 Mg PO HS PRN Vitamin D (Cholecalciferol) 2,000 Unit Cap 1,000 Mg PO DAILY Omeprazole 20 Mg Tab 20 Mg PO DAILY Xarelto (Rivaroxaban) 20 Mg Tab 20 Mg PO DAILY Review of Systems General / Constitutional: No: Fever Eyes: No: Visual changes HENT: No: Headaches Cardiovascular: No: Chest Pain or Discomfort Respiratory: No: Shortness of Breath Gastrointestinal: Positive: Abdominal Pain, Constipation Genitourinary: No: Dysuria Musculoskeletal: No: Pain Skin: No Rash Neurologic: No: Weakness Psychiatric: No: Depression Endocrine: No: Polydipsia Hematologic/Lymphatic: No: Easy Bruising Physical Exam Narrative GENERAL: Well-nourished, well-developed patient. SKIN: Focused skin assessment warm/dry. HEAD: Normocephalic. EYES: No scleral icterus. No injection or drainage. NECK: Supple, trachea midline. No JVD or lymphadenopathy. CARDIOVASCULAR: Regular rate and rhythm without murmurs, gallops, or rubs. RESPIRATORY: Breath sounds equal bilaterally. No accessory muscle use. GASTROINTESTINAL: Abdomen soft, non-tender, nondistended. Rectal exam reveals no impacted stool. Yellow stool. MUSCULOSKELETAL: No cyanosis, or edema. BACK: Nontender without obvious deformity. No CVA tenderness. Neurologic exam normal. Data Data Last Documented VS Vital Signs Date Time Temp Pulse Resp B/P (MAP) Pulse Ox O2 Delivery O2 Flow Rate FiO2 02/18/17 10:53 70 16 138/69 (92) 98 Room Air 02/18/17 08:35 97.4 Orders Orders Complete Blood Count With Diff (02/18/17 08:52) Comprehensive Metabolic Panel (02/18/17 08:52) Lipase (02/18/17 08:52) Prothrombin Time / Inr (Pt) (02/18/17 08:52) Act Partial Throm Time (Ptt) (02/18/17 08:52) Urinalysis - C+S If Indicated (02/18/17 08:52) Ct Abd/Pel W Iv Contrast(Rout) (02/18/17 08:52) Iv Access Insert/Monitor (02/18/17 08:52) Ecg Monitoring (02/18/17 08:52) Oximetry (02/18/17 08:52) Sodium Chloride 0.9% Flush (Ns Flush) (02/18/17 09:00) Iohexol 350 Inj (Omnipaque 350 Inj) (02/18/17 10:40) Labs Laboratory Tests Test 02/18/17 09:00 02/18/17 09:05 Urine Collection Type CLEAN CATCH Urine Color YELLOW Urine Turbidity CLEAR Urine pH 6.0 Urine Specific [place] 1.005 Urine Protein NEG mg/dL Urine Glucose (UA) NEG mg/dL Urine Ketones NEG mg/dL Urine Occult Blood TRACE Urine Nitrite NEG Urine Bilirubin NEG Urine Leukocyte Esterase TRACE Urine RBC 0-3 /hpf Urine WBC 0-2 /hpf Microscopic Urinalysis Comment CULT NOT INDICATED White Blood Count 6.1 TH/MM3 Red Blood Count 3.87 MIL/MM3 Hemoglobin 11.5 GM/DL Hematocrit 35.3 % Mean Corpuscular Volume 91.1 FL Mean Corpuscular Hemoglobin 29.6 PG Mean Corpuscular Hemoglobin Concent 32.5 % Red Cell Distribution Width 12.7 % Platelet Count 254 TH/MM3 Mean Platelet Volume 7.8 FL Neutrophils (%) (Auto) 67.6 % Lymphocytes (%) (Auto) 22.6 % Monocytes (%) (Auto) 6.5 % Eosinophils (%) (Auto) 2.6 % Basophils (%) (Auto) 0.7 % Neutrophils # (Auto) 4.1 TH/MM3 Lymphocytes # (Auto) 1.4 TH/MM3 Monocytes # (Auto) 0.4 TH/MM3 Eosinophils # (Auto) 0.2 TH/MM3 Basophils # (Auto) 0.0 TH/MM3 CBC Comment DIFF FINAL Differential Comment Prothrombin Time 12.6 SEC Prothromb Time International Ratio 1.1 RATIO Activated Partial Thromboplast Time 42.3 SEC Blood Urea Nitrogen 23 MG/DL Creatinine 1.00 MG/DL Random Glucose 92 MG/DL Total Protein 7.6 GM/DL Albumin 3.9 GM/DL Calcium Level 9.6 MG/DL Alkaline Phosphatase 98 U/L Aspartate Amino Transf (AST/SGOT) 16 U/L Alanine Aminotransferase (ALT/SGPT) 18 U/L Total Bilirubin 0.4 MG/DL Sodium Level 139 MEQ/L Potassium Level 3.8 MEQ/L Chloride Level 104 MEQ/L Carbon Dioxide Level 26.6 MEQ/L Anion Gap 8 MEQ/L Estimat Glomerular Filtration Rate 53 ML/MIN Lipase 142 U/L MDM Medical Decision Making Medical Screen Exam Complete: Yes Emergency Medical Condition: Yes Interpretation(s) 10:28 AM. CBC within normal limits. CMP within normal limit. 11:[address] scan abdomen pelvis negative acute pathology. Differential Diagnosis Differential diagnosis including colitis, UTI, pyelonephritis, nephrolithiasis, hemorrhoid, constipation. Narrative Course 86 years old female with lower abdominal pain and rectal pain. History of constipation. Diagnosis Primary Impression: Abdominal pain Qualified Codes: R10.30 - Lower abdominal pain, unspecified Patient Instructions: General Instructions Additional Instructions: Stool softener as needed. Follow-up with personal physician and delinquent tax collector assistant. Return if worse. Med/Other Pt SpecificInfo: No Change to Meds Disposition: 01 DISCHARGE HOME Condition: Stable Peng Harris MD Feb 18, 2017 08:58
[2017-02-18] MEDS ORDERED: SODIUM CHLORIDE 0.9% FLUSH 10 ML FLUSH IV FLUSH PRN (09:00)
[2017-02-18 09:12] VITALS: RESP 18; O2SAT 98
[2017-02-18 09:28] LABS: AUTOMATED NEUTROPHIL # 4.1 TH/MM3 (1.8-7.7); BASOPHIL % 0.7 % (0.0-2.0); EOSINOPHIL # 0.2 TH/MM3 (0-0.4); EOSINOPHIL % 2.6 % (0.0-4.0); HEMATOCRIT 35.3 % (35.0-46.0); HEMO FLAGS DIFF FINAL; LYMPH % 22.6 % (9.0-44.0); LYMPHOCYTE # 1.4 TH/MM3 (1.0-4.8); MEAN CELL VOLUME 91.1 FL (80.0-100.0); MEAN CORPUSCULAR HEMOGLOBIN 29.6 PG (27.0-34.0); MEAN CORPUSCULAR HGB CONC 32.5 % (32.0-36.0); MONO % 6.5 % (0.0-8.0); NEUT % 67.6 % (16.0-70.0); PLATELET COUNT 254 TH/MM3 (150-450); RED BLOOD COUNT 3.87 MIL/MM3 (4.00-5.30); RED CELL DISTRIBUTION WIDTH 12.7 % (11.6-17.2); WHITE BLOOD COUNT 6.1 TH/MM3 (4.0-11.0)
[2017-02-18 09:32] LABS: GLUCOSE,URINE NEG (NEG); KETONE, URINE NEG (NEG); NITRITE,URINE NEG (NEG)
[2017-02-18 09:33] LABS: BLOOD, URINE TRACE (NEG)
[2017-02-18 09:38] VITALS: BP 144/73; PULSE 68; RESP 18; O2SAT 97
[2017-02-18 09:40] LABS: APTT (PATIENT) 42.3 SEC (24.3-30.1); INTERNATIONAL NORMALIZED RATIO 1.1 RATIO; PROTHROMBIN TIME - PATIENT 12.6 SEC (9.8-11.6)
[2017-02-18 09:41] LABS: COMMENT (UR) CULT NOT INDICATED; CULTURE IF INDICATED CULT NOT INDICATED; METHOD OF COLLECTION CLEAN CATCH; RBC, URINE 0-3 /hpf (0-3); URINE COLOR YELLOW (YELLW/STRAW); WBC, URINE 0-2 /hpf (0-5)
[2017-02-18 10:10] LABS: BICARBONATE 26.6 MEQ/L (21.0-32.0)
[2017-02-18 10:13] LABS: ALT (GPT) 18 U/L (10-53); GLOMERULAR FILTRATION RATE 53 ML/MIN (>89)
[2017-02-18 10:14] LABS: TOTAL BILIRUBIN ADULT 0.4 MG/DL (0.2-1.0)
[2017-02-18 10:16] LABS: ALKALINE PHOSPHATASE 98 U/L (45-117); ANION GAP 8 MEQ/L (5-15); CHLORIDE 104 MEQ/L (98-107); POTASSIUM 3.8 MEQ/L (3.5-5.1); SODIUM (NA) 139 MEQ/L (136-145)
[2017-02-18 10:17] LABS: AST (GOT) 16 U/L (15-37); BLOOD UREA NITROGEN 23 MG/DL (7-18)
[2017-02-18] MEDS ORDERED: IOHEXOL 350 MG/ML 10 ML VIAL (for RAD DIAG) IVCONTRAST ONE (10:40)
[2017-02-18 10:53] VITALS: BP 138/69; PULSE 70; RESP 16; O2SAT 98
--- NOTE | 2017-02-18 11:00 | RADRPT ---
EXAM DATE/TIME: 02/18/2017 10:25 [facility] COMPARISON: CT ABDOMEN & PELVIS W CONTRAST, October 05, 2015, 8:09. INDICATIONS : Lower abdominal/rectal pain for 4 days. Constipation. IV CONTRAST: 95 cc Omnipaque 350 (iohexol) IV ORAL CONTRAST: No oral contrast ingested. RADIATION DOSE: 13.78 CTDIvol (mGy) MEDICAL HISTORY : Cardiovascular disease. Cerebrovascular disease. Hypertension. SURGICAL HISTORY : Hysterectomy. ENCOUNTER: Initial ACUITY: 4 - 6 days PAIN SCALE: 5/10 LOCATION: Left lower quadrant TECHNIQUE: Volumetric scanning of the abdomen and pelvis was performed. Using automated exposure control and ad justment of the mA and/or kV according to patient size, radiation dose was kept as low as reasonably achievable to obtain optimal diagnostic quality images. DICOM format image data is available electro nically for review and comparison. FINDINGS: LOWER LUNGS: The visualized lower lungs are clear. Small hiatus hernia. LIVER: Homogeneous density without lesion. There is no dilation of the intrahepatic biliary tree. Common b ile duct measures up to 10 mm. Cholecystectomy. SPLEEN: Normal size without lesion. PANCREAS: Within normal limits. KIDNEYS: Normal in size and shape. There is no mass, stone or hydronephrosis. ADRENAL GLANDS: Within normal limits. VASCULAR: There is no aortic aneurysm. BOWEL/MESENTERY: No dilated loops of small or large bowel. ABDOMINAL WALL: Within normal limits. RETROPERITONEUM: There is no lymphadenopathy. BLADDER: No wall thickening or mass. REPRODUCTIVE: Within normal limits. INGUINAL: There is no lymphadenopathy or hernia. MUSCULOSKELETAL: Within normal limits for patient age. CONCLUSION: 1. Prominence of the extrahepatic biliary ducts, probably reservoir effect from prior cholecystectomy . 2. Otherwise negative CT abdomen/pelvis with contrast. Damir Cohn MD on February 18, 2017 at 10:55 Board Certified Radiologist. This report was verified electronically.
== END 2017-02-18 11:28 | disposition home or self-care (01) ==
LOC: PHED 08:26
DX: R10.30 Lower abdominal pain, unspecified (principal); K62.89 Other specified diseases of anus and rectum; I48.91 Unspecified atrial fibrillation; Z79.01 Long term (current) use of anticoagulants
CPT/HCPCS: 74177; 80053; 81001; 83690; 85025; 85610; 85730; 99284; Q9967

== ENCOUNTER 2017-06-22 23:24 | Emergency (ER) | payer OTHER ==
[~2017-06-22] VITALS: Ht 167.6 cm; Wt 73.5 kg
[~2017-06-22 23:24] MED LIST changes: -CITA20TA4 PO; +TEMA7.5C PO; +ZOLO50TA PO
[2017-06-22 23:29] VITALS: BP 163/76; PULSE 66; RESP 18; TEMP 97.3; O2SAT 100
[2017-06-23] MEDS ORDERED: PERC5TAB12 PO (00:14)
--- NOTE | 2017-06-23 00:17 | PD ---
HPI Chief Complaint: Pain: Acute or Chronic Time Seen by Provider: 23:53 Travel History International Travel<30 days: No Contact w/Intl Traveler<30days: No Traveled to known affect area: No History of Present Illness HPI The patient is an 86-year-old female that complains of almost 2 weeks of left lower leg pain. Initially it started out as sciatic nerve pain with the left side buttocks and upper leg pain. Later the pain shifted to the left foot and a bloody cyst was aspirated by Dr. Squires, her orthopedic physician. The pain persist and it is the left lower leg pain that hurts now. She denies any trauma. X-rays of the foot apparently were normal. She is getting imaging of the left hip and pelvis. She states she cannot sleep. The patient is on Xarelto for atrial fibrillation. She is already been tried on steroids without relief according to the patient. PFSH Past Medical History Hx Anticoagulant Therapy: Yes Arthritis: Yes Atrial Fibrillation: Yes Anxiety: Yes Depression: Yes Heart Rhythm Problems: Yes Cancer: No Cardiovascular Problems: Yes (hx of a-fib) High Cholesterol: Yes Chemotherapy: No Chest Pain: No Congestive Heart Failure: No Cerebrovascular Accident: Yes (tia's) Diminished Hearing: No Endocrine: No Gastrointestinal Disorders: Yes (GERD) GERD: Yes Genitourinary: No Headaches: No Hiatal Hernia: No Heparin Induced Thrombocytopen: No Hypertension: Yes Immune Disorder: No Implanted Vascular Access Dvce: No Kidney Stones: No Musculoskeletal: Yes (LEFT KNEE ARTHOSCOPY,LEFT SHOLDER REPAIR AFTER TORN ROTATOR CUFF) Neurologic: Yes Psychiatric: Yes Reproductive: No Respiratory: No Immunizations Current: Yes Migraines: No Radiation Therapy: No Renal Failure: No Seizures: No Sickle Cell Disease: No Ulcer: No Tetanus Vaccination: < 5 Years Influenza Vaccination: Yes ?: Not Menopausal: Yes : 3 Para: 3 Past Surgical History Abdominal Surgery: No AICD: No Arteriovenous Shunt: No Cardiac Surgery: No Ear Surgery: No Endocrine Surgery: No Eye Surgery: No Genitourinary Surgery: No Gynecologic Surgery: Yes Hysterectomy: Yes Insulin Pump: No Joint Replacement: No Neurologic Surgery: Yes ([id number]) Oral Surgery: No Pacemaker: No Thoracic Surgery: No Tonsillectomy: Yes Other Surgery: Yes (BENIGN HEAD TUMOR) Social History Alcohol Use: Yes (SOCIALLY) Tobacco Use: No (NEVER) Substance Use: No Allergies-Medications (Allergen,Severity, Reaction): Coded Allergies: amoxicillin (Verified Allergy, Severe, Rash, 06/22/17) penicillin G (Verified Adverse Reaction, Intermediate, BURNING IN STOMACH , 06/22/17) REPORTS NO ADVERSE REACTION TO SAID NURSE Reported Meds & Prescriptions Reported Meds & Active Scripts Active Reported Zoloft (Sertraline HCl) 50 Mg Tab 50 Mg PO DAILY Temazepam 7.5 Mg Cap 7.5 Mg PO HS PRN Vitamin D (Cholecalciferol) 2,000 Unit Cap 1,000 Mg PO DAILY Omeprazole 20 Mg Tab 20 Mg PO DAILY Xarelto (Rivaroxaban) 20 Mg Tab 20 Mg PO DAILY Review of Systems Except as stated in HPI: all other systems reviewed are Neg Physical Exam Narrative GENERAL: Well-nourished, well-developed patient in moderate distress with her left lower leg discomfort. The patient is extremely anxious. Her vital signs show blood pressure 163/76 but otherwise are normal. SKIN: Focused skin assessment warm/dry. No erythema is noted over the skin. HEAD: Normocephalic. EYES: No scleral icterus. No injection or drainage. NECK: Supple, trachea midline. No JVD or lymphadenopathy. CARDIOVASCULAR: Regular rate and rhythm without murmurs, gallops, or rubs. RESPIRATORY: Breath sounds equal bilaterally. No accessory muscle use. GASTROINTESTINAL: Abdomen soft, non-tender, nondistended. MUSCULOSKELETAL: No cyanosis, or edema. Most of the tenderness appears to be the left lower leg both medially and laterally. She points laterally to where most of the pain is. The patient is tender over the fibula as well as medial tibia. No erythema is noted and no cysts are noted. There is no evidence of infection over the skin of the foot or the leg. Straight leg raising is normal. BACK: Nontender without obvious deformity. No CVA tenderness. Data Data Last Documented VS Vital Signs Date Time Temp Pulse Resp B/P (MAP) Pulse Ox O2 Delivery O2 Flow Rate FiO2 06/22/17 23:29 97.3 66 18 163/76 (105) 100 MDM Medical Decision Making Medical Screen Exam Complete: Yes Emergency Medical Condition: Yes Medical Record Reviewed: Yes Differential Diagnosis Left leg pain, sciatic nerve pain, infection foot, inflammation foot Narrative Course The patient appears to have inflammation of the left lower leg causing pain. This does not appear as sciatic nerve pain at this time. There is no swelling or erythema over the leg and straight leg raising is normal. Impression: Left leg pain Plan: The patient will be given Percocet 5/325. Diagnosis Primary Impression: Left leg pain Additional Instructions: Do not drink alcohol or drive with a pain medicine. The side effects are dizziness/sleepiness/nausea/constipation. Follow-up with the asbestos abatement worker and Dr. Squires as well as your primary care physician. We have not explained the cause of the pain yet so do get the imaging that they recommended. Med/Other Pt SpecificInfo: Prescription(s) given Scripts Oxycodone-Acetaminophen (Percocet) 5-325 mg Tab 1 TAB PO Q6H Y for PAIN, #15 TAB 0 Refills Prov: Garry Rocha MD 06/23/17 Disposition: 01 DISCHARGE HOME Condition: Stable Garry Rocha MD Jun 23, 2017 00:17
[2017-06-23] MEDS ORDERED: oxyCODONE/ACETAMINOPHEN 5 MG/325 MG TAB PO ONE (00:30)
== END 2017-06-23 00:46 | disposition home or self-care (01) ==
LOC: PHED 23:24
DX: M79.662 Pain in left lower leg (principal); E78.00 Pure hypercholesterolemia, unspecified; F32.9 Major depressive disorder, single episode, unspecified; F41.9 Anxiety disorder, unspecified; I10 Essential (primary) hypertension; I48.91 Unspecified atrial fibrillation; K21.9 Gastro-esophageal reflux disease without esophagitis; M19.90 Unspecified osteoarthritis, unspecified site; Z86.73 Personal history of transient ischemic attack (TIA), and cerebral infarction without residual deficits; Z79.01 Long term (current) use of anticoagulants
CPT/HCPCS: 99283

== ENCOUNTER 2018-02-07 10:23 | Observation (INO) ==
[2018-02-07] MEDS ORDERED: Sod Chloride 0.9% Inj 1,000 ML IV.CONT SCH (10:30)
[2018-02-07 10:39] LABS: Baso % (Auto) 0.6 % (0.0-2.0); Eos # (Auto) 0.2 th/mm3 (0.0-0.4); Hematocrit 33.4 % (35.0-46.0); Lymph # (Auto) 1.7 th/mm3 (1.0-4.8); Lymph % (Auto) 28.8 % (9.0-44.0); Mean Corpuscular HGB Conc 32.9 % (32.0-36.0); Mean Corpuscular Hemoglobin 30.7 pg (27.0-34.0); Mean Corpuscular Volume 93.2 fL (80.0-100.0); Mean Platelet Volume 7.9 fL (7.0-11.0); Mono # (Auto) 0.4 th/mm3 (0.0-0.9); Mono % (Auto) 6.3 % (0.0-8.0); Neut # (Auto) 3.7 th/mm3 (1.8-7.7); Neut % (Auto) 60.3 % (16.0-70.0); Platelet Count 248 th/mm3 (150-450); Red Blood Count 3.58 mil/mm3 (4.00-5.30); Red Cell Distribution Width 13.7 % (11.6-17.2)
--- NOTE | 2018-02-07 10:48 | CT ---
EXAM DATE: 02/07/2018 10:40 AM EST AGE/SEX: 87 years / Female INDICATIONS: Stroke alert. Expressive aphasia and difficulty following commands. CLINICAL DATA: This is the patient's initial encounter. Patient reports that signs and symptoms have been present for 1 day and indicates a pain score of 0/10. MEDICAL/SURGICAL HISTORY: None. None. RADIATION DOSE: 57.98 CTDI (mGy) COMPARISON: POI, MR BRAIN W AND W/O CONTRAST, 08/16/2017. . TECHNIQUE: CT of the head without contrast. Using automated exposure control and adjustment of the mA and/or kV according to patient size, radiation dose was kept as low as reasonably achievable to ob tain optimal diagnostic quality images. DICOM format image data is available electronically for revi ew and comparison. FINDINGS: Cerebrum: The ventricles are normal for age. No evidence of midline shift, mass lesion, hemorrhage or acute infarction. No extraaxial fluid collections are seen. 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 The 4th ventricle is midline. The cerebe llopontine angle is unremarkable. Extracranial: The visualized portion of the orbits is intact. Skull: The calvaria is intact. No evidence of skull fracture. CONCLUSION: 1. Negative for acute process Report was called by [Dr. Tejeda to Dr. Dave at conclusion of exam] Electronically signed by: Jayson Tejeda MD 02/07/2018 10:47 AM EST
[2018-02-07 11:03] LABS: Activated Partial Thrombo Time 39.9 sec (23.4-31.7); INR 1.1 Ratio; Prothrombin Time 11.1 sec (9.8-11.6)
--- NOTE | 2018-02-07 11:05 | ED ---
HPI General Chief Complaint: Stroke Alert Stated Complaint: poss TIA Time Seen by Provider: 02/07/18 10:29 Source: patient and family Limitations: no limitations History of Present Illness HPI Narrative: Patient is an 87-year-old female, past medical history significant for previous TIAs and atrial fibrillation on Xarelto, last took Xarelto last night, who presents with complaint of difficulty speaking. She was last seen well at approximately 845 this morning. At approximately 945 she started to have some dizziness and difficulty walking with expressive aphasia. Family states she also had some confusion. The dizziness is now gone but she is still having some difficulty finding her words with slight confusion. She denies any numbness or weakness in any extremities. She denies any recent trauma. No chest pain or shortness of breath. No abdominal pain. Location: Reports speech Severity: moderate Quality: Reports improving Exacerbating factors: none Context: Reports sudden onset On Anticoagulants: Yes Treatments Prior to Arrival: Reports none Related Data Home Medications Medication Instructions Recorded Confirmed omeprazole 1 tab PO DAILY 10/08/17 02/07/18 rivaroxaban [Xarelto] 20 mg PO HS 10/08/17 02/07/18 sertraline [Zoloft] 1 tab PO HS 10/08/17 02/07/18 calcium carbonate [Calcium 500] 1,000 mg PO DAILY 02/07/18 02/07/18 cholecalciferol (vitamin D3) 5,000 unit PO DAILY 02/07/18 02/07/18 [Vitamin D3] rosuvastatin 10 mg PO DAILY 02/07/18 02/07/18 Allergies Allergy/AdvReac Type Severity Reaction Status Date / Time amoxicillin Allergy Intermediate Rash Verified 02/07/18 11:27 penicillin G AdvReac Intermediate "Burning Verified 02/07/18 11:27 in stomach" Review of Systems ROS: all other systems reviewed are negative [facility] Medical History Medical History High cholesterol (Acute) Macular degeneration (Acute) Atrial fibrillation (Acute) H/O: hysterectomy (Acute) TIA (transient ischemic attack) (Acute) Surgical History Surgical History H/O knee surgery (Acute) H/O shoulder surgery (Acute) Hx of cholecystectomy (Acute) S/P ablation of atrial fibrillation (Acute) Social History Social History Substance History: No History of Abuse Second Hand Smoke Exposure: No Smoking Status: Never smoker How Often Do You Have a Drink Containing Alcohol: Never Recent Travel in [place] within the Last 8 Weeks: No Recent Out of Country Travel within the Last 8 Weeks: No Exam Narrative Exam Narrative: GENERAL: Well-appearing though tearful female SKIN: Focused skin assessment warm/dry. No rashes. HEAD: Atraumatic. Normocephalic. EYES: Pupils equal and round. No scleral icterus. No injection or drainage. ENT: No nasal bleeding or discharge. Mucous membranes pink and moist. NECK: Trachea midline. No JVD. CARDIOVASCULAR: Regular rate. No murmur appreciated. Intact and equal peripheral pulses. RESPIRATORY: No accessory muscle use. Clear to auscultation. Breath sounds equal bilaterally. GASTROINTESTINAL: Abdomen soft, non-tender, nondistended. Hepatic and splenic margins not palpable. MUSCULOSKELETAL: No obvious deformities. No clubbing. No cyanosis. No edema. NEUROLOGICAL: Awake and alert. Some expressive aphasia with slight dysarthria. No pronator drift. No visual field deficits. No numbness nor weakness to the extremities nor face. No facial droop. PSYCHIATRIC: Anxious Course Initial Documented Vital Signs Temperature 98.3 F 02/07/18 10:25 Pulse Rate 68 02/07/18 10:25 Respiratory Rate 22 02/07/18 10:25 Blood Pressure 193/81 H 02/07/18 10:25 Pulse Oximetry 98 02/07/18 10:25 Last Documented Vital Signs Temperature 98.3 F 02/07/18 10:25 Pulse Rate 76 02/07/18 10:29 Respiratory Rate 22 02/07/18 10:25 Blood Pressure 193/81 H 02/07/18 10:25 Pulse Oximetry 98 02/07/18 10:43 Medical Decision Making [facility] Narrative Medical decision making narrative: Patient is an 87-year-old female who presents with complaint of expressive aphasia and dysarthria with report of previous dizziness and difficulty walking that has since improved since onset. She is on Xarelto. Stroke alert was called on her arrival. CT of the head did not show acute hemorrhage but as she is on blood thinners that she is not a candidate for TPA. Her symptoms have been improving while in the emergency department. CTA did not show a large thrombosis that IR could intervene on. She passed her swallow study and did receive 81 mg of aspirin. I spoke extensively with Dr. Olson several times and he recommended that the patient received aspirin, have the head of the bed flat with normal saline at 70 cc, and then be admitted for both an MRI and an EEG. I spoke with Dr. Gr, hospitalist on-call, who agreed to the admission and stated he would order the MRI and EEG. Medical Screen Exam Complete: Yes Emergency Medical Condition: Yes Differential Diagnosis Differential Diagnosis: Differential diagnosis includes but is not limited to cerebrovascular accident, intracranial hemorrhage, TIA. Medical Records Medical records reviewed: Yes I reviewed the patient's medical records. Lab Data Lab results reviewed: Yes I reviewed the patient's lab results. Result diagrams: 02/07/18 10:25 Lab Results 02/07/18 02/07/18 02/07/18 Range/Units 10:25 10:25 11:20 CBC w Diff Auto diff final WBC 6.0 (4.0-11.0) th/mm3 RBC 3.58 L (4.00-5.30) mil/mm3 Hgb 11.0 L (11.6-15.3) gm/dL Hct 33.4 L (35.0-46.0) % MCV 93.2 (80.0-100.0) fL MCH 30.7 (27.0-34.0) pg MCHC 32.9 (32.0-36.0) % RDW 13.7 (11.6-17.2) % Plt Count 248 (150-450) th/mm3 MPV 7.9 (7.0-11.0) fL Neut % (Auto) 60.3 (16.0-70.0) % Lymph % (Auto) 28.8 (9.0-44.0) % [place] % (Auto) 6.3 (0.0-8.0) % Eos % (Auto) 4.0 (0.0-4.0) % Baso % (Auto) 0.6 (0.0-2.0) % Neut # (Auto) 3.7 (1.8-7.7) th/mm3 Lymph # (Auto) 1.7 (1.0-4.8) th/mm3 [place] # (Auto) 0.4 (0.0-0.9) th/mm3 Eos # (Auto) 0.2 (0.0-0.4) th/mm3 Baso # (Auto) 0.0 (0.0-0.2) th/mm3 WBC Differential . Differential Comment . PT 11.1 (9.8-11.6) sec INR 1.1 Ratio APTT 39.9 H (23.4-31.7) sec Fibrinogen 408 H (227-377) mg/dL Ur Collection Type Clean catch Urine Color Yellow (Yellw/Straw) Urine Clarity Clear (Clear) Urine pH 7.5 (5.0-8.5) Ur Specific [place] Less/equal 1.005 (1.002-1.035) Urine Protein Negative (Neg-Trace) mg/dL Urine Glucose (UA) Negative (Negative) mg/dL Urine Ketones Negative (Negative) mg/dL Urine Occult Blood Negative (Negative) Urine Nitrate Negative (Negative) Urine Bilirubin Negative (Negative) Urine Urobilinogen 0.2 (Less than 2) mg/dL Ur Leukocyte Esterase Negative (Negative) Ur Microscopic Review Microscopic reviewed Urine Culture Comments Culture not ind Urine Collection Time 1130 hours Imaging Data Attestation: I personally reviewed and interpreted this imaging study as follows : Radiologist's impression: Chest X-Ray 02/07/18 10:29 CONCLUSION: No acute cardiopulmonary findings. Head CT 02/07/18 10:29 CONCLUSION: 1. Negative for acute process Report was called by [Dr. Tejeda to Dr. Dave at conclusion of exam] Head CTA 02/07/18 10:29 CONCLUSION: 1. Unremarkable CTA of the brain. Report was called by [Dr. Real to Dr. Olson at 1104 hours. ] Neck CTA 02/07/18 10:29 CONCLUSION: 1. Minimal stenosis at the origin of the left subclavian artery. 2. The carotid circulation is widely patent bilaterally. 3. Dominant left vertebral the vertebral basilar circulation is otherwise unremarkable. Discharge Plan Discharge Disposition Patient Disposition: 30 Still Patient Discharge Condition Condition: Stable Discharge Details Diagnosis: Acute CVA (cerebrovascular accident), Anticoagulant long-term use Physicians Team ED Provider: Risa Dave Primary Care Provider: Do Patty Bianchi Rxs /Orders / Referrals /Forms Prescriptions: No Action sertraline [Zoloft] 50 mg Tablet 1 tab PO HS RF: 0 omeprazole 20 mg Tablet,Delayed Release (Dr/Ec) 1 tab PO DAILY RF: 0 rivaroxaban [Xarelto] 10 mg Tablet 20 mg PO HS RF: 0 calcium carbonate [Calcium 500] 500 mg calcium (1,250 mg) Tablet 1,000 mg PO DAILY RF: 0 rosuvastatin 10 mg Tablet 10 mg PO DAILY RF: 0 cholecalciferol (vitamin D3) [Vitamin D3] 5,000 unit Tablet 5,000 unit PO DAILY RF: 0 Status ED Status: With Doctor
--- NOTE | 2018-02-07 11:07 | CT ---
EXAM DATE: 02/07/2018 10:58 AM EST AGE/SEX: 87 years / Female INDICATIONS: Stroke alert. Expressive aphasia and difficulty following commands. CLINICAL DATA: This is the patient's initial encounter. Patient reports that signs and symptoms have been present for 1 day and indicates a pain score of 0/10. MEDICAL/SURGICAL HISTORY: None. None. RADIATION DOSE: 43.06 CTDI (mGy) COMPARISON: [facility], CT HEAD W/O CONTRAST, 02/07/2018. . TECHNIQUE: Volumetric scanning was performed using a multi-row detector CT scanner during bolus infu jocelin of 85 ml Visipaque 320 (iodixanol) nonionic water-soluble contrast as a cumulative dose for mul tiple exams. The data was post processed with a variety of visualization algorithms including full volume maximum intensity projection, multi-planar sliding thin slab reformation, curved planar reform ation, and surface rendering techniques. Using automated exposure control and adjustment of the mA a nd/or kV according to patient size, radiation dose was kept as low as reasonably achievable to obtain optimal diagnostic quality images. DICOM format image data is available electronically for review a nd comparison. FINDINGS: There is excellent visualization of the major intracranial arteries out to the second-order branch ve ssels. There is no evidence for aneurysm, vessel truncation or stenosis, and no evidence for vascula r malformation. No filling defects to suggest embolus or thrombus. CONCLUSION: 1. Unremarkable CTA of the brain. Report was called by [Dr. Real to Dr. Olson at 1104 hours. ] Electronically signed by: Damir Real MD 02/07/2018 11:06 AM EST
--- NOTE | 2018-02-07 11:23 | XR ---
EXAM DATE: 02/07/2018 11:16 AM EST AGE/SEX: 87 years / Female INDICATIONS: Stroke alert. CLINICAL DATA: This is the patient's initial encounter. Patient reports that signs and symptoms have been present for 1 day and indicates a pain score of 0/10. MEDICAL/SURGICAL HISTORY: Hypercholesterolemia. Transient ischemic attack. Afib . cardiac abl ation COMPARISON: [facility], CHEST SINGLE AP, 10/29/2016. . FINDINGS: A single AP view of the chest demonstrates the lungs to be symmetrically aerated without evidence of mass, infiltrate or effusion. The cardiomediastinal contours are unremarkable. Osseous structures a re intact. CONCLUSION: No acute cardiopulmonary findings. Electronically signed by: River Tejeda MD 02/07/2018 11:22 AM EST
--- NOTE | 2018-02-07 11:23 | CT ---
EXAM DATE: 02/07/2018 11:15 AM EST AGE/SEX: 87 years / Female INDICATIONS: Stroke alert. Expressive aphasia and difficulty following commands. CLINICAL DATA: This is the patient's initial encounter. Patient reports that signs and symptoms have been present for 1 day and indicates a pain score of 0/10. MEDICAL/SURGICAL HISTORY: None. None. RADIATION DOSE: 43.06 CTDI (mGy) ; Combined studies COMPARISON: No prior exams available for comparison. TECHNIQUE: Volumetric scanning was performed using a multirow detector CT scanner during bolus infus ion of 85 ml Visipaque 320 (iodixanol) nonionic water-soluble contrast as a cumulative dose for mult iple exams. The data was postprocessed with a variety of visualization algorithms including full-vo lume maximum intensity projection, multiplanar sliding thin-slab reformation, curved-planar reformati on, and surface-rendering techniques. Using automated exposure control and adjustment of the mA and/ or kV according to patient size, radiation dose was kept as low as reasonably achievable to obtain op timal diagnostic quality images. DICOM format image data is available electronically for review and comparison. Percent stenosis is calculated using the diameter of the stenotic region over the diameter of the nor mal distal internal carotid artery. FINDINGS: Aortic Arch: There is normal anatomic branching of the great vessels from the arch. There is mild os tial stenosis at the origin of the left subclavian. Right Carotid: The common carotid artery is intact. The carotid bulb has a normal configuration wit hout ulceration or narrowing. The internal carotid artery lumen is smooth without stenosis. The ext ernal carotid artery is intact. Left Carotid: The common carotid artery is intact. The carotid bulb has a normal configuration with out ulceration or narrowing. The internal carotid artery lumen is smooth without stenosis. The exte rnal carotid artery is intact. Vertebrals: The exam demonstrates a dominant left vertebral artery. The basilar is widely patent. Th e right vertebral is small in caliber but patent throughout its course. CONCLUSION: 1. Minimal stenosis at the origin of the left subclavian artery. 2. The carotid circulation is widely patent bilaterally. 3. Dominant left vertebral the vertebral basilar circulation is otherwise unremarkable. Electronically signed by: River Tejeda MD 02/07/2018 11:22 AM EST
[2018-02-07 11:40] LABS: Bilirubin,Urine Negative (Negative); Clarity,Urine Clear (Clear); Color,Urine Yellow (Yellw/Straw); Glucose,Urine (UA) Negative (Negative); Leukocyte Esterase,Urine Negative (Negative); Nitrite,Urine Negative (Negative); PH,Urine 7.5 (5.0-8.5); Specific Gravity,Urine Less/Equal 1.005 (1.002-1.035); Urobilinogen,Urine 0.2 mg/dL (Less than 2)
[2018-02-07 11:47] LABS: Collection Time,Urine 1130 hours
[2018-02-07] MEDS ORDERED: Bisacodyl 10 MG Supp RECTAL PRN (12:03)
[2018-02-07] MEDS ORDERED: Acetaminophen 325 MG Tablet PO PRN (12:03)
[2018-02-07 12:04] LABS: Creatine Kinase 84 U/L (26-192)
[2018-02-07 12:21] LABS: Amphetamine Screen,Urine Neg (Neg); Cocaine Screen,Urine Neg (Neg)
[2018-02-07 12:22] LABS: Cannabinoid Screen,Urine Neg (Neg)
[2018-02-07 12:26] LABS: Barbiturate Screen,Urine Neg (Neg)
--- NOTE | 2018-02-07 12:26 | P.HP ---
History of Present Illness Service: Hospitalist Primary Care Physician: Do Patty Bianchi Chief Complaint: Difficulty speaking. History of Present Illness: Ms. Bowser is a pleasant right-handed 87-year-old Female with a history of previous TIAs, atrial fibrillation on Xarelto who presents to the emergency department due to difficulty speaking and word finding difficulties. Patient was on her iPad composing emails. At around 845 she noticed that she could not write what she wanted to write. She could not find the right words. At approximately 9:45 AM she started to experience of dizziness and difficulty walking as well as expressive aphasia. Family also noted some confusion. By the time she came to the emergency department her dizziness is resolved. However, she is still experiencing some word finding difficulties. She denies any numbness or weakness in any extremities. No chest pain, shortness of breath , abdominal pain. No fever or chills. No changes in bowel or bladder habits. Past medical history: Atrial fibrillation, TIAs before, hyperlipidemia Past surgical history: Knee surgery, shoulder surgery, cholecystectomy, atrial fibrillation ambulation Social history: Patient denies using tobacco or alcohol. Family history: Mother had dementia. Father had lung cancer Review of Systems All other systems reviewed negative except as stated in [facility] - History History Provided By: Patient, Family Member - Medical History Medical History: Medical History (Last Reviewed 02/07/18 @ 12:23 by Alex Gr DO) High cholesterol Macular degeneration Atrial fibrillation H/O: hysterectomy TIA (transient ischemic attack) - Surgical History Surgical History: Surgical History (Last Reviewed 02/07/18 @ 12:23 by Alex Gr DO) H/O knee surgery H/O shoulder surgery Hx of cholecystectomy S/P ablation of atrial fibrillation - Tobacco History Second Hand Smoke Exposure: No Smoking Status: Never smoker - Alcohol History How Often Do You Have a Drink Containing Alcohol: Never - Substance Use History Substance History: No History of Abuse - Travel History Recent Travel in the [place] Within the Last 8 Weeks: No Recent Travel Out of the Country Within the Last 8 Weeks: No - Immunization History Tetanus Immunization: Unsure Medications and Allergies Active Medications: Active Medications Acetaminophen (Tylenol) 650 mg PO Q4H PRN PRN Reason: Headache, fever, pain 1-4 Al Hydroxide/Mg Hydroxide (Milk Of Magnesia Liq) 30 ml PO Q12H PRN PRN Reason: Mild Constipation Bisacodyl (Dulcolax Supp) 10 mg RECTAL DAILY PRN PRN Reason: SEVERE CONSITIPATION Calcium Carbonate (Oscal) 1,000 mg PO DAILY REPLACED BY [facility] Sodium Chloride (Ns Inj) 1,000 mls @ 75 mls/hr IV.CONT .[id number] REPLACED BY [facility] Lactulose (Lactulose Liq) 30 ml PO DAILY PRN PRN Reason: SEVERE CONSITIPATION Non-Formulary Medication (Cholecalciferol (Vitamin D3) [Vitamin D3]) 5,000 unit PO DAILY REPLACED BY [facility] Non-Formulary Medication (Omeprazole [Omeprazole]) 1 tab PO DAILY REPLACED BY [facility] Non-Formulary Medication (Rosuvastatin [Rosuvastatin]) 10 mg PO DAILY REPLACED BY [facility] Ondansetron HCl (Zofran Inj) 4 mg IV.PUSH Q6H PRN PRN Reason: NAUSEA OR VOMITING Sennosides (Senokot) 17.2 mg PO Q12H PRN PRN Reason: Moderate Constipation Sertraline HCl (Zoloft) 50 mg PO [facility] Allergies Allergy/AdvReac Type Severity Reaction Status Date / Time amoxicillin Allergy Intermediate Rash Verified 02/07/18 11:27 penicillin G AdvReac Intermediate "Burning Verified 02/07/18 11:27 in stomach" Home Medications Medication Instructions Recorded Confirmed Type omeprazole 1 tab PO DAILY 10/08/17 02/07/18 History rivaroxaban [Xarelto] 20 mg PO HS 10/08/17 02/07/18 History sertraline [Zoloft] 1 tab PO HS 10/08/17 02/07/18 History calcium carbonate [Calcium 500] 1,000 mg PO DAILY 02/07/18 02/07/18 History cholecalciferol (vitamin D3) 5,000 unit PO DAILY 02/07/18 02/07/18 History [Vitamin D3] rosuvastatin 10 mg PO DAILY 02/07/18 02/07/18 History Exam Vital signs: Vital Signs 02/07/18 10:25 02/07/18 10:29 02/07/18 10:43 Temperature 98.3 F Pulse Rate 68 76 Respiratory Rate 22 Blood Pressure 193/81 H Pulse Oximetry 98 98 98 Intake & Output 02/06/18 02/07/18 02/07/18 18:59 06:59 18:59 Weight 73 kg Narrative: GENERAL: This is a well-nourished, well-developed patient, in no apparent distress. SKIN: No rashes, ecchymoses or lesions. Warm and dry. HEAD: Atraumatic. Normocephalic. No temporal or scalp tenderness. EYES: Pupils equal round and reactive. No injection or drainage. ENT: Nose without bleeding, purulent drainage or septal hematoma. Airway patent. NECK: Trachea midline. No lymphadenopathy. Supple, nontender, no meningeal signs. CARDIOVASCULAR: Regular rate and rhythm without murmurs, gallops, or rubs. No JVD. RESPIRATORY: Clear to auscultation. Breath sounds equal bilaterally. No wheezes , rales, or rhonchi. GASTROINTESTINAL: Abdomen soft, non-tender, nondistended. No guarding. MUSCULOSKELETAL: Extremities without clubbing, cyanosis, or edema. NEUROLOGICAL: Awake and alert. Cranial nerves II through XII intact. No focal neurological deficits. Normal speech. Results - Labs CBC & Chem 7: 02/07/18 10:25 Labs: Laboratory Results - last 24 hr 02/07/18 02/07/18 02/07/18 10:25 10:25 10:25 CBC w Diff Auto diff final WBC 6.0 RBC 3.58 L Hgb 11.0 L Hct 33.4 L MCV 93.2 MCH 30.7 MCHC 32.9 RDW 13.7 Plt Count 248 MPV 7.9 Neut % (Auto) 60.3 Lymph % (Auto) 28.8 [place] % (Auto) 6.3 Eos % (Auto) 4.0 Baso % (Auto) 0.6 Neut # (Auto) 3.7 Lymph # (Auto) 1.7 [place] # (Auto) 0.4 Eos # (Auto) 0.2 Baso # (Auto) 0.0 WBC Differential . Differential Comment . PT 11.1 INR 1.1 APTT 39.9 H Fibrinogen 408 H Total Creatine Kinase 84 Troponin I Less than 0.02 L Ur Collection Type Urine Color Urine Clarity Urine pH Ur Specific [place] Urine Protein Urine Glucose (UA) Urine Ketones Urine Occult Blood Urine Nitrate Urine Bilirubin Urine Urobilinogen Ur Leukocyte Esterase Ur Microscopic Review Urine Culture Comments Urine Collection Time 02/07/18 11:20 CBC w Diff WBC RBC Hgb Hct MCV MCH MCHC RDW Plt Count MPV Neut % (Auto) Lymph % (Auto) [place] % (Auto) Eos % (Auto) Baso % (Auto) Neut # (Auto) Lymph # (Auto) [place] # (Auto) Eos # (Auto) Baso # (Auto) WBC Differential Differential Comment PT INR APTT Fibrinogen Total Creatine Kinase Troponin I Ur Collection Type Clean catch Urine Color Yellow Urine Clarity Clear Urine pH 7.5 Ur Specific [place] Less/equal 1.005 Urine Protein Negative Urine Glucose (UA) Negative Urine Ketones Negative Urine Occult Blood Negative Urine Nitrate Negative Urine Bilirubin Negative Urine Urobilinogen 0.2 Ur Leukocyte Esterase Negative Ur Microscopic Review Microscopic reviewed Urine Culture Comments Culture not ind Urine Collection Time 1130 - Imaging Impressions Chest X-Ray 02/07/18 10:29 CONCLUSION: No acute cardiopulmonary findings. Head CT 02/07/18 10:29 CONCLUSION: 1. Negative for acute process Report was called by [Dr. Tejeda to Dr. Dave at conclusion of exam] Head CTA 02/07/18 10:29 CONCLUSION: 1. Unremarkable CTA of the brain. Report was called by [Dr. Real to Dr. Olson at 1104 hours. ] Neck CTA 02/07/18 10:29 CONCLUSION: 1. Minimal stenosis at the origin of the left subclavian artery. 2. The carotid circulation is widely patent bilaterally. 3. Dominant left vertebral the vertebral basilar circulation is otherwise unremarkable. Caprini VTE Risk Assessment Caprini VTE Risk Assessment: No/Low Risk (score <= 1) Caprini Risk Assessment Model: Point Value = 1 Point Value = 2 Point Value = 3 Point Value = 5 Age 41-60 Minor surgery BMI > 25 kg/m2 Swollen legs Varicose veins or History of unexplained or recurrent spontaneous Oral contraceptives or hormone replacement Sepsis (< 1 month) Serious lung disease, including pneumonia (< 1 month) Abnormal pulmonary function Acute myocardial infarction Congestive heart failure (< 1 month) History of inflammatory bowel disease Medical patient at bed rest Age 61-74 Arthroscopic surgery Major open surgery (> 45 min) Laparoscopic surgery (> 45 min) Malignancy Confined to bed (> 72 hours) Immobilizing plaster cast Central venous access Age >= 75 History of VTE Family history of VTE Factor V Leiden Prothrombin [id number] Lupus anticoagulant Anticardiolipin antibodies Elevated serum homocysteine Heparin-induced thrombocytopenia Other congenital or acquired thrombophilia Stroke (< 1 month) Elective arthroplasty Hip, pelvis, or leg fracture Acute spinal cord injury (< 1 month) Prophylaxis Regimen: Total Risk Factor Score Risk Level Prophylaxis Regimen 0-1 Low Early ambulation 2 Moderate Order ONE of the following: *Sequential Compression Device (SCD) *Heparin 5000 units SQ BID 3-4 Higher Order ONE of the following medications: *Heparin 5000 units SQ TID *Enoxaparin/Lovenox 40 mg SQ daily (WT < 150 kg, CrCl > 30 mL/min) *Enoxaparin/Lovenox 30 mg SQ daily (WT < 150 kg, CrCl > 10-29 mL/min) *Enoxaparin/Lovenox 30 mg SQ BID (WT < 150 kg, CrCl > 30 mL/min) AND/OR *Sequential Compression Device (SCD) 5 or more Highest Order ONE of the following medications: *Heparin 5000 units SQ TID (Preferred with Epidurals) *Enoxaparin/Lovenox 40 mg SQ daily (WT < 150 kg, CrCl > 30 mL/min) *Enoxaparin/Lovenox 30 mg SQ daily (WT < 150 kg, CrCl > 10-29 mL/min) *Enoxaparin/Lovenox 30 mg SQ BID (WT < 150 kg, CrCl > 30 mL/min) AND *Sequential Compression Device (SCD) Assessment and Plan - Plan Ms. Bowser is a pleasant 87-year-old female with a history of previous TIAs, atrial fibrillation on Xarelto who presents to the emergency department due to dizziness as well as dysarthria, word finding difficulties. Patient's symptoms noticed around 9:45 a.m.. She was at her baseline at around 8:45 AM. Probable acute CVA CT head, CTA head as well as CT neck are all unremarkable for any acute findings. Neurology consulted. Neurology recommended head of bed flat, EEG, MRI brain Continue IV fluid at 75 cc/h. We will obtain EEG as well as MRI brain. Hold Xarelto for now. Apparently she has been on warfarin as well as apixaban before. Switching to Pradaxa would be a consideration. Another option would be to consider watchman device. Patient follows up with [facility]. Atrial fibrillation Hyperlipidemia Patient was on Xarelto 20 mg nightly. Home medications do not include any rate control medications. Continue statin [id number] score is at least 5 (female, over 75, previous CVA). Full code. Will start Xarelto when okay with neurology.
[2018-02-07 12:31] LABS: Opiate Screen,Urine Neg (Neg)
--- NOTE | 2018-02-07 13:20 | MR ---
EXAM DATE: 02/07/2018 1:04 PM EST AGE/SEX: 87 years / Female INDICATIONS: Slurred speech. Memory loss. CLINICAL DATA: This is the patient's initial encounter. Patient reports that signs and symptoms have been present for 1 day and indicates a pain score of 0/10. MEDICAL/SURGICAL HISTORY: Hypercholesterolemia. A-fib Hysterectomy. Cholecystectomy. meningio ma, knee and shoulder arthroscopy COMPARISON: POI, MR BRAIN W AND W/O CONTRAST, 08/16/2017. . TECHNIQUE: Multiplanar, multisequence examination of the brain was performed without contrast. 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 Marked periventricular white denise er changes. Mild central and cortical atrophy. No extra-axial fluid collections appreciated. No paren chymal hemorrhage. White Matter: Marked periventricular white matter changes. Posterior Fossa: The cerebellum and brainstem are intact. Prominent cisterna magna. The 4th ventricl e is midline. The cerebellopontine angle is unremarkable. The cerebellar tonsils are normal in posi tion. Diffusion Imaging: No focal areas of restricted diffusion are seen. No evidence of acute infarction . Extracranial: The visualized portions of the orbits and paranasal sinuses are unremarkable. CONCLUSION: 1. 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 2. Marked periventricular white matter changes 3. No restricted diffusion to suggest an acute ischemic event. Electronically signed by: Jayson Tejeda MD 02/07/2018 1:18 PM EST
[2018-02-07] MEDS: Sod Chloride 0.9% Inj 1,000 ML IV.CONT SCH (17:12)
--- NOTE | 2018-02-07 17:41 | MB ---
cc: Cassia Montalvo MD DATE: 02/07/2018 REASON FOR CONSULTATION: Stroke. HISTORY OF PRESENT ILLNESS: This is an 87-year-old woman who has a history of TIAs, atrial fibrillation, on Xarelto, who came in due to trouble speaking and word finding. She was apparently trying to talk at about 8:45 and noted she could not write on her iPad, could not find the right words, did not make any sense. It sounded like she had an expressive aphasia and was seen by teleneurology. No tPA was given because of the fact that she was already on Xarelto. The patient is at baseline now. She had an MRI of the brain that did not show anything acute. Carotids and [place] CT angiograms were really unremarkable as well. PAST MEDICAL HISTORY: As stated, also hyperlipidemia. She also has macular degeneration. PAST SURGICAL HISTORY: Knee, shoulder, cholecystectomy, ablation for atrial fibrillation. SOCIAL HISTORY: She does not smoke or drink. FAMILY HISTORY: Dementia in the mother, lung cancer in her father. PHYSICAL EXAMINATION: VITAL SIGNS: Temperature 97.2, pulse 61, respiratory rate 18, blood pressure 184/81, sating at 97%. NECK: Supple, no bruits. HEART: Regular. NEUROLOGIC: She is awake, alert, fluent. Follows commands. Pupils reactive. Visual curtis full. Face symmetrical. Tongue midline. Motor, no drift or leg lag. DTRs are 1+. Toes downgoing. Cerebellar is normal. Gait is withheld. LABORATORY DATA: Hemoglobin 11. Otherwise, the rest of her chemistries are really unremarkable. Hematocrit 33.4. Coags, PTT 39.9. Chemistry, CK 84. Urine unremarkable. Tox screen negative. IMAGING DATA: CTA [place] and carotids really unremarkable. MRI of the brain did not show any acute infarct. IMPRESSION: A transient ischemic attack-like event. PLAN: Recommend continuing her Xarelto. I would add a baby aspirin to her regimen. Also, we will get an EEG. Continue current care. Get PT, OT to see her. Certainly, another option would be switching her over from Xarelto to Pradaxa. I do not have any reason at this point to not consider a change. EEG will be obtained and if workup is negative, certainly can be discharged home. MD Katharine Castro , 04:57 PM , 05:05 PM
[2018-02-07 19:32] LABS: Chol/HDL Ratio 4.12 Ratio; HDL Cholesterol 60.9 mg/dL (40.0-60.0)
--- NOTE | 2018-02-07 20:31 | MG ---
cc: Mesfin Anthony MD EEG RECORD NUMBER: [id number] DESCRIPTION: A 7-8 Hz posterior rhythm, 20-50 microvolts myogenic artifact in the frontal channels, reasonably good drive under photic stimulation. Good EEG variability reactivity. Single-lead EKG showing sinus rhythm. INTERPRETATION: Normal awake electroencephalogram. Clinical correlation. Mesfin Anthony MD MG/sv/do , 07:57 PM , 08:01 PM
[2018-02-07] MEDS ORDERED: Sertraline 50 MG Tablet PO SCH (21:00)
[2018-02-08] MEDS: Sod Chloride 0.9% Inj 1,000 ML IV.CONT SCH ×2 (03:14)
--- NOTE | 2018-02-08 07:37 | P.PNIM ---
Subjective Interval history: Follow-up TIA. Patient seen and examined, lying in bed comfortably in no apparent distress. Patient did well overnight, slept well. All symptoms have resolved. She states she feels much at her baseline. She is eating well without any problems swallowing. Vital signs stable. Afebrile. Awaiting physical therapy consult, will likely discharge home today after PT. Daughter at bedside and updated as well. Physical Exam Vital signs: Vital Signs 02/07/18 10:25 02/07/18 10:29 02/07/18 10:43 Temperature 98.3 F Pulse Rate 68 76 Respiratory Rate 22 Blood Pressure 193/81 H Pulse Oximetry 98 98 98 02/07/18 12:00 02/07/18 12:29 02/07/18 14:02 Temperature Pulse Rate 68 65 72 Respiratory Rate 18 16 Blood Pressure 148/76 H 164/76 H Pulse Oximetry 98 100 100 02/07/18 14:23 02/07/18 15:50 02/07/18 20:00 Temperature 97.7 F 97.2 F L 97.0 F L Pulse Rate 64 61 63 Respiratory Rate 18 18 18 Blood Pressure 162/72 H 184/81 H 141/85 H Pulse Oximetry 99 97 95 02/08/18 00:00 Temperature 96.8 F L Pulse Rate 61 Respiratory Rate 18 Blood Pressure 138/64 Pulse Oximetry 95 Intake & Output 02/07/18 02/08/18 02/08/18 18:59 06:59 18:59 Intake Total 500 / 500 1075 / 1075 Output Total 450 / 450 Balance 500 / 500 625 / 625 Weight 73 kg 78.1 kg Intake: IV 500 / 500 1000 / 1000 NS Inj 1,000 ML @ 75 mls/hr IV. 500 / 500 1000 / 1000 CONT .[id number] MAMIE Rx#: [id number] Oral 75 / 75 Output: Urine 450 / 450 Other: # Voids 2 # Bowel Movements 0 Narrative: GENERAL: This is a well-nourished, well-developed patient, in no apparent distress. SKIN: No rashes, ecchymoses or lesions. Warm and dry. HEAD: Atraumatic. Normocephalic. No temporal or scalp tenderness. EYES: Pupils equal round and reactive. No injection or drainage. ENT: Nose without bleeding, purulent drainage or septal hematoma. Airway patent. NECK: Trachea midline. No lymphadenopathy. Supple, nontender, no meningeal signs. CARDIOVASCULAR: Regular rate and rhythm without murmurs, gallops, or rubs. No JVD. RESPIRATORY: Clear to auscultation. Breath sounds equal bilaterally. No wheezes , rales, or rhonchi. GASTROINTESTINAL: Abdomen soft, non-tender, nondistended. No guarding. MUSCULOSKELETAL: Extremities without clubbing, cyanosis, or edema. NEUROLOGICAL: Awake and alert. Cranial nerves II through XII intact. No focal neurological deficits. Normal speech. Results - Labs CBC & Chem 7: 02/07/18 10:25 Laboratory Results - last 24 hr 02/07/18 02/07/18 02/07/18 10:25 10:25 10:25 CBC w Diff Auto diff final WBC 6.0 RBC 3.58 L Hgb 11.0 L Hct 33.4 L MCV 93.2 MCH 30.7 MCHC 32.9 RDW 13.7 Plt Count 248 MPV 7.9 Neut % (Auto) 60.3 Lymph % (Auto) 28.8 [place] % (Auto) 6.3 Eos % (Auto) 4.0 Baso % (Auto) 0.6 Neut # (Auto) 3.7 Lymph # (Auto) 1.7 [place] # (Auto) 0.4 Eos # (Auto) 0.2 Baso # (Auto) 0.0 WBC Differential . Differential Comment . PT 11.1 INR 1.1 APTT 39.9 H Fibrinogen 408 H Total Creatine Kinase 84 Troponin I Less than 0.02 L Triglycerides Cholesterol LDL Cholesterol, Calc HDL Cholesterol Cholesterol/HDL Ratio Ur Collection Type Urine Color Urine Clarity Urine pH Ur Specific [place] Urine Protein Urine Glucose (UA) Urine Ketones Urine Occult Blood Urine Nitrate Urine Bilirubin Urine Urobilinogen Ur Leukocyte Esterase Ur Microscopic Review Urine Culture Comments Urine Collection Time Urine Opiates Screen Ur Barbiturates Screen Ur Amphetamines Screen U Benzodiazepines Scrn Urine Cocaine Screen U Cannabinoids Screen Blood Type Blood Type Recheck Antibody Screen 02/07/18 02/07/18 02/07/18 10:25 10:25 11:20 CBC w Diff WBC RBC Hgb Hct MCV MCH MCHC RDW Plt Count MPV Neut % (Auto) Lymph % (Auto) [place] % (Auto) Eos % (Auto) Baso % (Auto) Neut # (Auto) Lymph # (Auto) [place] # (Auto) Eos # (Auto) Baso # (Auto) WBC Differential Differential Comment PT INR APTT Fibrinogen Total Creatine Kinase Troponin I Triglycerides 125 Cholesterol 251 H LDL Cholesterol, Calc 165 H HDL Cholesterol 60.9 H Cholesterol/HDL Ratio 4.12 Ur Collection Type Urine Color Urine Clarity Urine pH Ur Specific [place] Urine Protein Urine Glucose (UA) Urine Ketones Urine Occult Blood Urine Nitrate Urine Bilirubin Urine Urobilinogen Ur Leukocyte Esterase Ur Microscopic Review Urine Culture Comments Urine Collection Time Urine Opiates Screen Neg Ur Barbiturates Screen Neg Ur Amphetamines Screen Neg U Benzodiazepines Scrn Neg Urine Cocaine Screen Neg U Cannabinoids Screen Neg Blood Type O Positive Blood Type Recheck Required Antibody Screen Negative 02/07/18 11:20 CBC w Diff WBC RBC Hgb Hct MCV MCH MCHC RDW Plt Count MPV Neut % (Auto) Lymph % (Auto) [place] % (Auto) Eos % (Auto) Baso % (Auto) Neut # (Auto) Lymph # (Auto) [place] # (Auto) Eos # (Auto) Baso # (Auto) WBC Differential Differential Comment PT INR APTT Fibrinogen Total Creatine Kinase Troponin I Triglycerides Cholesterol LDL Cholesterol, Calc HDL Cholesterol Cholesterol/HDL Ratio Ur Collection Type Clean catch Urine Color Yellow Urine Clarity Clear Urine pH 7.5 Ur Specific [place] Less/equal 1.005 Urine Protein Negative Urine Glucose (UA) Negative Urine Ketones Negative Urine Occult Blood Negative Urine Nitrate Negative Urine Bilirubin Negative Urine Urobilinogen 0.2 Ur Leukocyte Esterase Negative Ur Microscopic Review Microscopic reviewed Urine Culture Comments Culture not ind Urine Collection Time 1130 Urine Opiates Screen Ur Barbiturates Screen Ur Amphetamines Screen U Benzodiazepines Scrn Urine Cocaine Screen U Cannabinoids Screen Blood Type Blood Type Recheck Antibody Screen - Imaging Impressions Head MRI 02/07/18 00:00 CONCLUSION: 1. 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 2. Marked periventricular white matter changes 3. No restricted diffusion to suggest an acute ischemic event. Chest X-Ray 02/07/18 10:29 CONCLUSION: No acute cardiopulmonary findings. Head CT 02/07/18 10:29 CONCLUSION: 1. Negative for acute process Report was called by [Dr. Tejeda to Dr. Dave at conclusion of exam] Head CTA 02/07/18 10:29 CONCLUSION: 1. Unremarkable CTA of the brain. Report was called by [Dr. Real to Dr. Olson at 1104 hours. ] Neck CTA 02/07/18 10:29 CONCLUSION: 1. Minimal stenosis at the origin of the left subclavian artery. 2. The carotid circulation is widely patent bilaterally. 3. Dominant left vertebral the vertebral basilar circulation is otherwise unremarkable. 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 Bowser is a pleasant 87-year-old female with a history of previous TIAs, atrial fibrillation on Xarelto who presents to the emergency department due to dizziness as well as dysarthria, word finding difficulties. Patient's symptoms noticed around 9:45 a.m.. She was at her baseline at around 8:[address] head, CTA head as well as CT neck are all unremarkable for any acute findings. Neurology consulted, input recommendations appreciated. Neurology recommended head of bed flat, EEG which is negative, MRI brain which is negative, no acute findings DC IV fluids. Patient continued on normal diet. No dysphagia noted. We will continue Xarelto per neurology recommendations. 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 Has an appointment scheduled. -All symptoms have resolved. Atrial fibrillation Hyperlipidemia Patient was on Xarelto 20 mg nightly. Home medications do not include any rate control medications. Continue statin [id number] score is at least 5 (female, over 75, previous CVA). Full code. Will restart Xarelto today. Discharge Planning: DC home. Prescriptions as discharge plan. Heart healthy diet as tolerated. Activity as tolerated. Follow-up PCP and cardiology.
[2018-02-08] MEDS ORDERED: Calcium Carbonate 500 MG Tablet PO SCH (09:00)
[2018-02-08] MEDS ORDERED: Pantoprazole Sodium 20 MG DR Tablet PO SCH (09:00)
--- NOTE | 2018-02-08 12:55 | ECG ---
Date Performed: 02/07/2018 Time Performed: 11:12:23 PTAGE: 87 years EKG: Sinus rhythm NORMAL ECG Since the PREVIOUS TRACING , no significant change noted PREVIOUS TRACIN10/08/2017 11.25 DOCTOR: Franchesca Estrada Interpretating Date/Time 02/08/2018 12:51:09
== END 2018-02-08 09:02 | disposition home or self-care (01) ==
LOC: PHED 10:23 → INTOOBSV 11:51 → PHEDA 11:51 → PH3 14:12
PROVIDERS: ADMIT Hospitalist; ATTEND Hospitalist
DX: I48.91 Unspecified atrial fibrillation; Z81.8 Family history of other mental and behavioral disorders; Z80.1 Family history of malignant neoplasm of trachea, bronchus and lung; Z86.73 Personal history of transient ischemic attack (TIA), and cerebral infarction without residual deficits; Q04.6 Congenital cerebral cysts; Z90.49 Acquired absence of other specified parts of digestive tract; E78.5 Hyperlipidemia, unspecified; I63.9 Cerebral infarction, unspecified; Z90.710 Acquired absence of both cervix and uterus; Z88.0 Allergy status to penicillin; Z79.01 Long term (current) use of anticoagulants; E78.00 Pure hypercholesterolemia, unspecified